=== PATIENT | male | born 1955 | race Caucasian/White ===

== ENCOUNTER 2022-06-29 10:23 | Observation (INO) | payer OTHER, SELFPAY ==
[2022-06-29 10:32] VITALS: BP 137/77; PULSE 82; TEMP 36.6; O2SAT 98; BMI 40.6
--- NOTE | 2022-06-29 10:50 | ED.ANIMALBIT ---
HPI - Animal Bite General Time Seen by Provider: 10:51 Date Seen: 06/29/22 Chief Complaint: Animal Bite Stated Complaint: Cat bite/cellulitis Time Seen by Provider: 06/29/22 10:50 Source: patient, RN notes reviewed and old records reviewed (Urgent care records sent with patient and are reviewed.) Mode of arrival: ambulatory Limitations: no limitations History of Present Illness HPI narrative: Bob is a 66-year-old diabetic male referred to us for IV antibiotics due to a cat bite. Bob went to clinic for follow-up of his cat bite that happened 2 days ago at [facility]. His cat is fully vaccinated, up-to-date on immunizations including rabies, kneels tetanus is up-to-date. Is pending his CT in the cat bit and scratched him 2 days ago. Yesterday he was having more redness and swelling of the hand could not approximate his thumb to his fingers due to pain. He was given a shot of Rocephin in the clinic and prescribed Augmentin. He states it was late enough last night that they did not have any Augmentin and did not get it until this morning. He states he has had temperatures up to 102, was 100 this morning. When he was seen in urgent care initially yesterday his temperature was 100.5. He is right-hand dominant. He has been trying to elevate the arm. He actually feels the mobility in his fingers is improved. MD complaint: animal bite Animal: cat Description of animal: household pet Mechanism: bite and scratch Related Data Patient tetanus UTD: Yes Home Medications Medication Instructions Recorded Confirmed albuterol sulfate 90 mcg/actuation 2 inh inhalation Q4H PRN 06/29/22 06/29/22 aerosol inhaler (Ventolin HFA) amlodipine 5 mg tablet 5 mg PO DAILY 06/29/22 06/29/22 amoxicillin 875 mg-potassium 1 tab PO Q12H 06/29/22 06/29/22 clavulanate 125 mg tablet aspirin 81 mg capsule 81 mg PO DAILY 06/29/22 06/29/22 atorvastatin 10 mg tablet 10 mg PO DAILY 06/29/22 06/29/22 bupropion HCl 300 mg 24 hr tablet, 300 mg PO DAILY 06/29/22 06/29/22 extended release escitalopram oxalate 10 mg tablet 10 mg PO DAILY 06/29/22 06/29/22 hydrochlorothiazide 50 mg tablet 50 mg PO DAILY 06/29/22 06/29/22 insulin glargine U-300 conc 300 160 unit subcut Q24H 06/29/22 06/29/22 unit/mL (3 mL) subcutaneous pen (Toujeo Max U-300 SoloStar) insulin lispro 100 unit/mL 20 unit subcut TIDWMEAL 06/29/22 06/29/22 subcutaneous pen liraglutide 0.6 mg/0.1 mL (18 mg/3 1.8 mg subcut DAILY 06/29/22 06/29/22 mL) subcutaneous pen injector (Victoza 3-Scotty) lisdexamfetamine 40 mg capsule 40 mg PO DAILY 06/29/22 06/29/22 (Vyvanse) losartan 100 mg tablet 100 mg PO DAILY 06/29/22 06/29/22 metformin 1,000 mg tablet 1,000 mg PO BID 06/29/22 06/29/22 methylphenidate HCl 10 mg tablet 10 mg PO DAILY PRN 06/29/22 06/29/22 methylphenidate HCl 36 mg 36 mg PO DAILY 06/29/22 06/29/22 tablet,extended release 24 hr (Concerta) pantoprazole 20 mg tablet,delayed 20 mg PO DAILY 06/29/22 06/29/22 release semaglutide 0.25 mg or 0.5 mg (2 0.5 mg subcut QWEEK 06/29/22 06/29/22 mg/1.5 mL) subcutaneous pen injector (Ozempic) Allergies Allergy/AdvReac Type Severity Reaction Status Date / Time No Known Drug Allergies Allergy Verified 06/29/22 10:43 Review of Systems Status of ROS: Reports: 10 or more systems reviewed and unremarkable except as noted in History and below PFSH PFSH Social History Smoking Status: Never smoker Do you use any of these nicotine containing products: None Second hand tobacco smoke exposure: No How often do you have a drink containing alcohol: 2-4 times a month How many standard drinks containing alcohol do you have on a typical day: 1 or 2 How often do you have six or more drinks on one occasion: Never AUDIT-C Alcohol total score: 2 Non-prescribed substance use: denies use Exam Const: Vital Signs, click to edit/add: Vital Signs - 24 hr 06/29/22 10:32 06/29/22 11:37 06/29/22 13:55 Temperature 97.8 F 97.6 F Pulse Rate [Left] 82 80 78 Respiratory Rate 22 22 Blood Pressure [Le ft Upper Arm] 137/77 130/73 128/75 Pulse Oximetry 98 95 95 Oxygen Delivery Me thod Room Air Room Air Room Air Documenting provider has reviewed patient's vital signs: yes Common normals: no apparent distress, oriented x3, no limitations, healthy appearing, alert and well nourished General appearance: cooperative, comfortable and well kempt Nutritional appearance: overweight HENMT: Common normals: normocephalic, head/scalp atraumatic, hearing grossly normal bilaterally and external ears normal Head and scalp: normocephalic and atraumatic External ear: external ears normal Eye: Common normals: PERRL, EOMs intact bilaterally, conjunctivae normal and no scleral icterus Conjunctiva: conjunctiva(e) normal Pupil: PERRL Neck & C-Spine: Common normals: full ROM, no lymphadenopathy, supple, no meningeal signs, no JVD and thyroid normal Thyroid: thyroid normal Resp: Common normals: normal respiratory effort, no retractions, no use of accessory muscles and clear to auscultation bilaterally Auscultation: clear to auscultation bilaterally Cardio: Common normals: no JVD, regular rate, regular rhythm, S1 normal heart sound, S2 normal heart sound, no gallops, no clicks and no murmurs Rate: regular rate Rhythm: regular rhythm Heart sounds: S1 normal and S2 normal Extremity: Other: Patient's right hand fingers and forearm are swelling. You can see you demarcation of erythema extending up the right medial forearm, ventral surface, small little island a little more proximally of erythema. You can see bite on the dorsum of the hand and thenar eminence area where it is oozing some serosanguineous fluid he can mobilize the wrist and does have flexion extension of the fingers. He states he was not able to approximate the thumb and the fingers at all yesterday. Clinically, on exam, I do not have concerns about septic tenosynovitis at this time. This is considerable cellulitis from a cat bite in certainly could extend to that however. Will place an IV, get appropriate labs. He has not had adequate oral antibiotics but do think that this is significant enough that I would not start with orals in this situation. I do think he needs IV. Will obtain labs, discussed with him and make a plan once I have seen the labs. One of the difficulties with the antibiotics is the dosing regimen. Has to be given frequently enough that we typically place people in the hospital as there is no way to do this reasonably outpatient. Neuro: Common normals: oriented x3 Sensorium/orientation: alert Meningeal signs: no meningeal signs Psych: Appearance: well kempt Course Course Hospital Course: See above, will be getting labs, initiate IV for starting IV antibiotics. Need to have blood cultures and labs drawn 1st however. Reevaluation(s) Reevaluation #1: Have reviewed with patient his elevated white count, elevated inflammatory markers and elevated glucose. I have ordered he Unasyn, will order maintenance IV fluids. I did speak with Dr. Macario at 1:22 p.m.. She is going to ask the hospitalist that comes on at 2:00 p.m. to see this gentleman which should be fine. I do think he will need to come into the hospital for initiation of IV antibiotics as stated before. I did do an outline of the erythema on his arm and honestly it has increased sense when I initially saw him, mildly but it has increased. Time: 13:28 Consultations Consultation #1: Spoke with the hospitalist, he will be assuming care. Time: 14:48 Vital Signs Vital signs: Initial Vital Signs Temperature 97.8 F 06/29/22 10:32 Temperature Source Temporal Artery Scan 06/29/22 10:32 Pulse Rate 82 06/29/22 10:32 Pulse Rhythm 06/29/22 10:32 Blood Pressure 137/77 06/29/22 10:32 Blood Pressure Mean 97 06/29/22 10:32 Blood Pressure Position Semi-Fowlers 06/29/22 10:32 Pulse Oximetry 98 06/29/22 10:32 Oxygen Delivery Method 06/29/22 10:32 Vital Signs Temperature 97.8 F 06/29/22 10:32 Pulse Rate 82 06/29/22 10:32 Blood Pressure 137/77 06/29/22 10:32 Pulse Oximetry 98 06/29/22 10:32 Oxygen Delivery Method 06/29/22 10:32 Temperature 97.6 F 06/29/22 13:55 Pulse Rate 78 06/29/22 13:55 Respiratory Rate 22 06/29/22 13:55 Blood Pressure 128/75 06/29/22 13:55 Pulse Oximetry 95 06/29/22 13:55 Oxygen Delivery Method 06/29/22 13:55 MDM - Animal Bite Lab Data Attestation: I reviewed the patient's lab results. Labs: Lab Results 06/29/22 06/29/22 06/29/22 Range/Units 11:18 11:18 11:18 WBC 12.76 H (4.50-11.00) K/uL RBC 4.82 (4.30-5.90) m/uL Hgb 14.7 (13.5-17.5) gm/dL Hct 42.6 (37.0-53.0) % MCV 88 (80-100) fL MCH 31 (26-34) pg MCHC 35 (32-36) gm/dL RDW Coeff of Handy 13.4 (11.5-15.5) % Plt Count 204 (140-440) K/uL Neut % (Auto) 81.1 H (42.0-72.0) % Lymph % (Auto) 10.1 L (20-44) % [place] % (Auto) 7.9 (0.0-11.0) % Eos % (Auto) 0.4 (0.0-7.0) % Baso % (Auto) 0.1 (0.0-3.0) % Neut # (Auto) 10.30 H (1.7-7.0) K/uL Lymph # (Auto) 1.30 (0.90-2.90) K/uL [place] # (Auto) 1.00 H (0.00-0.90) K/UL Eos # (Auto) 0.10 (0.00-0.50) K/uL Baso # (Auto) 0.00 (0.00-0.30) K/uL Abs Immat Gran (auto) 0.05 (0.00-0.30) K/uL ESR 34 H (2-15) mm/hr Sodium 135 (135-149) mmol/L Potassium 3.4 L (3.6-5.1) mmol/L Chloride 99 (96-114) mmol/L Carbon Dioxide 26 (20-32) mmol/L BUN 18 (7-30) mg/dL Creatinine 0.9 (0.5-1.5) mg/dL Estimated Creat Clear 72.20 Estimated GFR 95 ml/min Glucose 284 H (60-115) mg/dL Calcium 9.2 (8.4-10.6) mg/dL C-Reactive Protein 8.9 H (0.5-1.0) mg/dL SARS-CoV-2 (PCR) (Negative) 06/29/22 Range/Units 11:25 WBC (4.50-11.00) K/uL RBC (4.30-5.90) m/uL Hgb (13.5-17.5) gm/dL Hct (37.0-53.0) % MCV (80-100) fL MCH (26-34) pg MCHC (32-36) gm/dL RDW Coeff of Handy (11.5-15.5) % Plt Count (140-440) K/uL Neut % (Auto) (42.0-72.0) % Lymph % (Auto) (20-44) % [place] % (Auto) (0.0-11.0) % Eos % (Auto) (0.0-7.0) % Baso % (Auto) (0.0-3.0) % Neut # (Auto) (1.7-7.0) K/uL Lymph # (Auto) (0.90-2.90) K/uL [place] # (Auto) (0.00-0.90) K/UL Eos # (Auto) (0.00-0.50) K/uL Baso # (Auto) (0.00-0.30) K/uL Abs Immat Gran (auto) (0.00-0.30) K/uL ESR (2-15) mm/hr Sodium (135-149) mmol/L Potassium (3.6-5.1) mmol/L Chloride (96-114) mmol/L Carbon Dioxide (20-32) mmol/L BUN (7-30) mg/dL Creatinine (0.5-1.5) mg/dL Estimated Creat Clear Estimated GFR ml/min Glucose (60-115) mg/dL Calcium (8.4-10.6) mg/dL C-Reactive Protein (0.5-1.0) mg/dL SARS-CoV-2 (PCR) Negative SARS-CoV-2 (Negative) Critical Care Time Critical Care Time Critical Care Time: No Discharge Plan Discharge Clinical Impression: Diabetes, Cellulitis, Cat bite Patient Disposition: Admitted As Inpatient Condition: Stable
--- OUTSIDE RECORDS SUMMARY | 2022-06-29 11:16 | XMS_ITS | Clinical Summary ---
:1955 Author Organization [employer] [facility] [facility] [place] [address] Care Team Providers Name Role Phone Ramin Dubon MD Primary Care Provider [phone] Unavailable Allergies Active Allergy Reactions Severity Noted Date Comments Unlisted Allergen Other - Describe In 12/27/2015 Gabbi er birch tree (Include Detail In Comment Field pollen, ragweed and Comments) hayfever. Also dust mites-nasal con gestion Medications Medication Sig Dispensed Refills Start End Date Status Date CLARITIN-D 24 HOUR 10 take 1 tablet by 0 Active MG-240 MG TAB oral route once 7 daily aspirin enteric coated Take 1 tablet by 0 Active 81 mg tablet mouth once daily 4 with a meal. fluticasone (50 mcg per Inhale 2 Sprays 6 Bottle 5 Active actuation) nasal into both 7 solution nostrils once (FLONASE)Indications: daily. Allergic rhinitis due to pollen, unspecified chronicity, unspecified seasonality lancets (ACCU-CHEK Dispense item 100 Each 5 Active FASTCLIX LANCET covered by pt 8 DRUM)Indications: ins. E11.65 NIDDM Controlled type 2 type II, diabetes mellitus uncontrolled - without complication, Test 3 times/day, unspecified whether Reason: High A1C long term care administrator insulin use (HC) ACCU-CHEK FASTCLIX TEST THREE TIMES 300 Each 3 Active LANCET DRUMIndications: DAILY 9 Controlled type 2 diabetes mellitus without complication, unspecified whether long term care administrator insulin use (HC) fluticasone Inhale 1 Puff by 1 Inhaler 6 A ctive propion-salmeteroL mouth 2 times 1 (ADVAIR DISKUS) 500-50 daily. mcg/Dose diskus inhalerIndications: Asthma, unspecified asthma severity, unspecified whether complicated, unspecified whether persistent blood sugar diagnostic Dispense item 300 Strip 3 Active (Accu-Chek Guide test covered by pt 1 strips) ins. E11.9 IDDM stripIndications: type II - Test 3 Controlled type 2 times/day.TEST diabetes mellitus THREE TIMES without complication, DAILY. High A1C. unspecified whether long term care administrator insulin use (HC) Blood-Glucose Sensor As directed. Wear 3 Each 12 Active (Dexcom G6 Sensor) for 10 days 1 deviIndications: Type 2 diabetes mellitus without complication, with long-term current use of insulin (HC) Blood-Glucose As directed. For 1 Each 4 Active Transmitter (Dexcom G6 use with DexCom 1 Transmitter) sensor, replace deviIndications: Type 2 every 3 months diabetes mellitus without complication, with long-term current use of insulin (HC) Insulin [place], USE 5/day for 500 Each 3 Active Disposable, (Gloria Pen injection of 1 Needle) 32 gauge x medication-victoz Indications: Type a and insulins 2 diabetes mellitus without complication, without long-term current use of insulin (HC) losartan (COZAAR) 100 Take 1 Tablet 90 tablet. 3 Active mg tabletIndications: (100 mg) by mouth 2 Hypertension, once daily. unspecified type atorvastatin (LIPITOR) Take 1 Tablet (10 90 Tablet 3 Active 10 mg mg) by mouth once 2 tabletIndications: daily with Hyperlipidemia, evening meal. unspecified hyperlipidemia type hydroCHLOROthiazide 50 Take 1 Tablet (50 90 tablet. 3 09/28/19 2 Active mg tabletIndications: mg) by mouth once 2 Hypertension, daily. unspecified type metFORMIN (GLUCOPHAGE) 1000mg twice 180 tablet. 3 Active 1,000 mg daily 2 tabletIndications: Type 2 diabetes mellitus without complication, with long-term current use of insulin (HC) pantoprazole (PROTONIX) Take 1 Tablet (20 90 tablet. 3 02 Active 20 mg mg) by mouth once 2 tabletIndications: daily. Chronic GERD albuterol HFA (PRO-AIR; Inhale 2 Puffs by 1 Each 1 01/25/20 2 Active VENTOLIN; PROVENTIL) 90 mouth every 4 2 mcg/actuation hours if needed inhalerIndications: for Wheezing 2nd Exacerbation of asthma, choice. unspecified asthma severity, unspecified whether persistent amLODIPine (NORVASC) 5 Take 1 Tablet (5 90 Tablet 3 Active mg tabletIndications: mg) by mouth once 2 HTN (hypertension) daily. methylphenidate HCl Take one tablet 60 Tablet 0 Active (Ritalin) 10 mg in the afternoon 2 tabletIndications: as needed for Attention deficit ADHD symptoms hyperactivity disorder, combined type insulin glargine, Inject 160 units 18 mL 6 Active U-300, (Toujeo Max subcutaneous once 2 U-300 SoloStar) 300 daily in the unit/mL (3 mL) inpn evening. penIndications: Type 2 diabetes mellitus without complication, with long-term current use of insulin (HC) semaglutide (Ozempic) 2 Inject 0.5 mg 1.5 mL 6 Active mg/1.5 mL (0.25mg or subcutaneous once 2 0.5mg doses) weekly. penIndications: Type 2 diabetes mellitus without complication, with long-term current use of insulin (HC) insulin lispro, U-100, Inject 20-30 30 mL 2 Active (HUMALOG KWIKPEN; units 2 ADMELOG SOLOSTAR) 100 subcutaneous 3 unit/mL inpn times daily penIndications: Type 2 before meals. diabetes mellitus without complication, with long-term current use of insulin (HC) methylphenidate HCl Take 1 Tablet (36 30 Tablet 0 Active (Concerta) 36 mg mg) by mouth once 2 Extended-Release daily. tabletIndications: ADHD (attention deficit hyperactivity disorder), combined type methylphenidate HCl Take 1 Tablet (36 30 Tablet 0 Active (Concerta) 36 mg mg) by mouth once 2 22 Extended-Release daily. tabletIndications: Attention deficit hyperactivity disorder, combined type methylphenidate HCl Take 1 Tablet (36 30 Tablet 0 Active (Concerta) 36 mg mg) by mouth once 2 22 Extended-Release daily. tabletIndications: Attention deficit hyperactivity disorder, combined type methylphenidate HCl Take 1 Tablet (36 30 Tablet 0 Active (Concerta) 36 mg mg) by mouth once 2 Extended-Release daily. tabletIndications: Attention deficit hyperactivity disorder, combined type buPROPion (WELLBUTRIN Take 1 Tablet 90 Tablet 0 Active XL) 300 mg (300 mg) by mouth 2 Extended-Release every morning. tabletIndications: Depression, unspecified depression type escitalopram oxalate Take 1 Tablet (10 90 Tablet 0 Active (LEXAPRO) 10 mg mg) by mouth 2 tabletIndications: every morning. Anxiety, Depression, unspecified depression type medication order Dexcom 6 display 1 Device 0 Active composerIndications: device 2 Type 2 diabetes mellitus without complication, with long-term current use of insulin (HC) amoxicillin-clavulanate Take 1 Tablet by 20 Tablet 0 07/08/20 Active 875-125 mg tablet mouth two times 2 22 (AUGMENTIN)Indications: daily with meals Cat bite, initial for 10 days. encounter acetaminophen (TYLENOL Take 2 Tablets 2 Tablet 0 EXTRA STRGTH) 500 mg (1,000 mg) by 2 22 tabletIndications: Cat mouth one time bite, initial encounter for 1 dose. Max acetaminophen dose: 4000mg in 24 hrs. Hospital, Clinic, or Other Ordered Dose Route Frequency Start Date End Date Status Facility Administered Medication cefTRIAXone (ROCEPHIN) 1 g IM ONE TIME 06/28/20222021 Ended Intramuscular injection 1 gIndications: skin and skin structure infection Active Problems Problem Noted Date Controlled substance agreement signed 12/10/2021 Overview: 12/10/21 Lise Prater MD/psychiatry Type 2 diabetes mellitus without complication, with lo ng-term current use 06/21/2021 of insulin Marital conflict 10/09/2018 ADHD (attention deficit hyperactivity disorder), combi kehinde type 10/31/2017 QIAN 07/31/2012 AHI-53 08/09/2012 Adjustment disorder with mixed anxiety and depressed m ood 05/28/2012 Overview: Rule out adult ADD Benign neoplasm of colon 12/22/2009 Overview: Colonoscopy 12/2009 polyp repeat in 5 yea rs Colonoscopy 01/2015 polyp repeat in 5 yea rs Allergic rhinitis, cause unspecified 04/10/2007 Overview: Allergic rhinitis Unspecified asthma(493.90) 12/11/2006 Unspecified essential hypertension 12/11/2006 Esophageal reflux 12/11/2006 HISTOPLASMOSIS 12/11/2006 Resolved Problems Problem Noted Date Resolved Date Uncontrolled type 2 diabetes mellitus, without long-term 06/21/2021 current use of insulin Controlled substance agreement signed 11/09/2019 Overview: Signed 11/08/2019 Dr Lise Prater Psy chiatry Depression 04/17/2018 11/09/2020 Controlled substance agreement signed 01/16/2018 Overview: 01/16/18 signed .Bette Gordillo DNP, FLOTATION TENDER, PAN PULLER/psychiatry Anxiety 10/31/2017 11/09/2020 Controlled substance agreement signed 02/18/2017 Overview: Signed 12/27/15 Dr. Scottie Medel MD / p sychiatry Depressive disorder, not elsewhere classified 11/11/2014 11/09/2020 Overview: Episodic intense depression periods/ not clearly bipolar/ not clearly major depression Diabetes mellitus type II, controlled 08/17/2012 Attention deficit disorder with hyperactivity(314.01) 201110/31/2017 Allergic rhinitis, cause unspecified 12/11/2006 Encounters Date Type Specialty Care Team Description 06/29/2022 Office Visit Hannah Rabago, COST AND RISK ANALYSIS MANAGER Cat Bit e 06/28/2022 Office Visit Letitia Mirza, DO Cat Bite (Cat bite/scratch right hand yest erday afternoon) 06/28/2022 Travel 05/30/2022 Telemedicine Lise Prater, Tel eal; Medication MD Management (Per ROLLER EMBOSSER Ritalin 10mg #60 last s old on 02-06-22uses fe w times a week/Concerta 3 6 mg last sold on 04-26-20) 05/30/2022 Telephone Ramin Dubon Que stions (glucose MD monitoring) 04/16/2022 Refill Ramin Dubon, Ref ill Request (Insulin MD Lispro (U-100)) from Last 3 Months Immunizations Name Administration Dates Next Due COVID-19 vaccine (Moderna 12/07/2020, 11/08/2020 100mcg/0.5mL) PF, MDV COVID-19 vaccine (Photoblog 12/26/2021 30mcg/0.3mL) 12YO+ JOHNNIE-SUCROSE PF, MDV COVID-19 vaccine (Photoblog 08/22/2021 30mcg/0.3mL) PF, MDV Influenza A (H1N1), Inactivated 08/14/2009 Influenza A (H1N1), Inactivated (Age 1108/14/2009 >=3 Years) Influenza, IIV3 (Age 6-35 mos) 07/03/2011 Influenza, IIV3 (Age >=3 years) 06/19/2013, 08/03/2012, 06/15, 07/30/2008, 07/16/2006, 10/08/2005 Influenza, IIV4 06/21/2021, 07/22/2019, 08/21/2018, 08/15/2017, 07/25/2016, 06/17/2014, 06/21/2013 Influenza, IIV4 (=>6mos) MDV 06/05/2015 Influenza,CCIIV4 PRESERV FREE 06/21/2020 MMR 12/30/2005 Pneumococcal Poly,23-Valent 08/21/2018 (Pneumovax) Td (Age >=7 Years) 09/15/2002 Tdap 08/03/2012 Zoster (Shingrix-RZV, recombinant) 05/09/2020, 07/22/2019 Family History Medical History Relation Name Comments Cancer Father prostate Diabetes Father Other Father prostate ca Cancer Maternal Uncle prostate Diabetes Mother prediabetic Other Paternal Uncle prostate ca in 2 uncles Relation Name Status Comments Father Maternal Uncle Mother Paternal Uncle Sister Alive Social History Tobacco Use Types Packs/Day Years Used Date Never Smoker Smokeless Tobacco: Never Used Tobacco Cessation: Counseling Given: No Alcohol Use Standard Drinks/Week Comments Yes 2 (1 standard drink = 0.6 oz pure alcoho l) rare Alcohol Habits Answer Date Recorded How often do you have a drink containing alcohol? 2-3 times a week 06/01/2020 How many drinks containing alcohol do you have on a 1 or 2 07/22/2019 typical day when you are drinking? How often do you have six or more drinks on one Never 07/22/2019 occasion? 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 Obstetrics History Last Filed Vital Signs Vital Sign Reading Time Taken Comments Blood Pressure 110/78 06/29/2022 9:39 AM CDT Pulse 91 06/29/2022 9:39 AM CDT Temperature 36.7 ??C (98.1 ??F) 06/29/2022 9:39 AM CDT Respiratory Rate 16 06/29/2022 9:39 AM CDT Oxygen Saturation 97% 06/29/2022 9:39 AM CDT Inhaled Oxygen Concentration - - Weight 121 kg (266 lb 12.8 oz) 06/28/2022 12:21 PM CDT Height 172.7 cm (5' 8) 03/05/2022 10:16 AM CDT Body Mass Index 40.57 03/05/2022 10:16 AM CDT Plan of Treatment Upcoming Encounters Date Type Specialty Care Team Description 07/23/2022 Telemedicine Conor Prater MD [address] 5 [phone] (Wo rk) Health Maintenance Due Date Last Done Comments Pneumococcal series for age 19-64 08/21/2019 08/21/2018 (2 - PCV) COVID-19 vaccine series (5 - 02/20/2022 12/26/2021, 021, Booster for Moderna series) 12/07/2020, Addition al history exists Influenza for age 50-64 05/16/2022 06/21/2021, 06/21/2020, 07/22/2019, Additional history exists Tetanus booster 08/03/2022 08/03/2012, 09/15/2002 BMI (ht and wt on same day) for 01/24/2023 01/24/2022, 09/16, age 18+ 06/01/2020, Additional history exists Depression screening for age 12+ 05/30/2023 05/30/2022, , 03/26/2022, Additional history exists Colonoscopy through age 75 08/17/2025 08/17/2020, , 08/17/2020, Additional history exists Lipids for age 45-75 02/21/2027 02/21/2022, 06/14/2021, 05/10/2020, Additional history exists Tdap Completed 08/03/2012 Zoster (shingles) series for age Completed 05/09/2020, 03/2019 50+ Hepatitis C screening for age Completed 09/26/2021 18-79 Procedures Procedure Name Priority Date/Time Associated Comments Diagnosis C-REACTIVE PROTEIN STAT 06/28/2022 1:15 PM Cat bite, initia l Results for this CDT encounter procedure are i n the results section. CBC WITH AUTO STAT 06/28/2022 1:07 PM Cat bite, initial Res ults for this DIFFERENTIAL CDT encounter procedure are i n the results section. CBC WITH AUTO STAT 06/28/2022 1:07 PM Cat bite, initial Res ults for this DIFFERENTIAL CDT encounter procedure are i n the results section. from Last 3 Months Results (ABNORMAL) C-REACTIVE PROTEIN (06/28/2022 1:15 PM CDT) Analysis Performed At Patho logist Time Signature C-REACTIVE 1.56 (H) <0.50 06/28/2022 [place] PROTEIN mg/dL 1:37 PM [facility] Specimen Anatomical Collection Method / Collection Time Recei guerita Time (Source) Location / Volume Laterality Blood BLOOD SPECIMEN / Venipuncture / 06/28/2022 1:15 2021 1:17 Unknown Unknown PM CDT PM CDT Letitia Mirza CHEMISTRY Performing Organization Address City/State/ZIP Code Phon e Number [facility] [address] [place] [address] (ABNORMAL) CBC WITH AUTO DIFFERENTIAL (06/28/2022 1:07 PM CDT) [facility] Method Time Signature WHITE BLOOD 18.2 (H) 4.5 - 06/28/2022 [place] COUNT 11.0 1:21 PM T [facility] thou/cu LABORATORY mm RED BLOOD COUNT 4.76 4.30 - 06/28/2022 [place] 5.90 1:21 PM T [facility] mil/cu mm LABORATORY HEMOGLOBIN 14.8 13.5 - 06/28/2022 [place] 17.5 g/dL 1:21 PM T [facility] HEMATOCRIT 42.5 37.0 - 06/28/2022 [place] 53.0 % 1:21 PM T [facility] MCV 89 80 - 100 06/28/2022 [place] fL 1:21 PM T [facility] MCH 31.1 26.0 - 06/28/2022 [place] 34.0 pg 1:21 PM T [facility] MCHC 34.8 32.0 - 06/28/2022 [place] 36.0 g/dL 1:21 PM T [facility] RDW 14.1 11.5 - 06/28/2022 [place] 15.5 % 1:21 PM T [facility] PLATELET COUNT 243 140 - 440 06/28/2022 [place] thou/cu 1:21 PM T [facility] mm LABORATORY MPV 10.1 6.5 - 06/28/2022 [place] 11.0 fL 1:21 PM CDT [facility] % NEUT 85.8 % 06/28/2022 [place] 1:21 PM CDT [facility] % LYMPH 6.4 % 06/28/2022 [place] 1:21 PM CDT [facility] % MONO 6.8 % 06/28/2022 [place] 1:21 PM [facility]T [facility] % EOS 0.7 % 06/28/2022 [place] 1:21 PM [facility]T [facility] % BASO 0.3 % 06/28/2022 [place] 1:21 PM CDT [facility] ABSOLUTE 15.7 (H) 1.7 - 7.0 06/28/2022 [place] NEUTROPHILS thou/cu 1:21 PM CDT [facility] mm LABORATORY ABSOLUTE 1.2 0.9 - 2.9 06/28/2022 [place] LYMPHOCYTES thou/cu 1:21 PM [facility]T [facility] mm LABORATORY ABSOLUTE 1.2 (H) <0.9 06/28/2022 [place] MONOCYTES thou/cu 1:21 PM CDT [facility] mm LABORATORY ABSOLUTE 0.1 <0.5 06/28/2022 [place] EOSINOPHILS thou/cu 1:21 PM CDT [facility] mm LABORATORY ABSOLUTE 0.1 <0.3 06/28/2022 [place] BASOPHILS thou/cu 1:21 PM CDT [facility] mm LABOR[facility]ORY Specimen Anatomical Collection Method / Collection Time Recei guerita Time (Source) Location / Volume Laterality Blood BLOOD SPECIMEN / Venipuncture / 06/28/2022 1:07 2021 1:11 Unknown Unknown PM CDT PM CDT Letitia Mirza DO HEMATOLOGY Performing Organization Address City/[facility]/ZIP Code Phon e Number [facility] [address] [place], [place] [phone] from Last 3 Months Insurance Payer Benefit Plan / Subscriber ID Effective Dates Phone Addre ss Type Group [employer] [id number] 2018-Present [address] [place] [address] Care Teams Placement Coordinator Relationship Specialty Start Date End Date Ramin Dubon, PCP - General Family Practice 11/09/[address] [place] [address] Laboratory Mechanical Technician Procurement Agent 07/04/21 [address] [place] [address]
[2022-06-29 11:37] VITALS: BP 130/73; PULSE 80; RESP 22; O2SAT 95
[2022-06-29 11:42] LABS: Basophils Percent Auto 0.1 % (0.0-3.0); Eosinophils Percent Auto 0.4 % (0.0-7.0); Hematocrit 42.6 % (37.0-53.0); Hemoglobin* 14.7 gm/dL (13.5-17.5); Immature Granulocytes Abs Auto 0.05 K/uL (0.00-0.30); Lymphocytes Percent Auto 10.1 % (20-44); Mean Corpuscular HGB Conc 35 gm/dL (32-36); Mean Corpuscular Hemoglobin 31 pg (26-34); Mean Corpuscular Volume 88 fL (80-100); Monocytes Percent Auto 7.9 % (0.0-11.0); Neutrophils Percent Auto 81.1 % (42.0-72.0); Platelet Count* 204 K/uL (140-440); RDW Coefficient of Variation % 13.4 % (11.5-15.5); Red Blood Count 4.82 m/uL (4.30-5.90); White Blood Count* 12.76 K/uL (4.50-11.00)
[2022-06-29 11:45] LABS: Slide Review Reflex No
[2022-06-29 11:55] LABS: Chloride* 99 mmol/L (96-114); Potassium* 3.4 mmol/L (3.6-5.1); Sodium* 135 mmol/L (135-149)
[2022-06-29 11:58] LABS: Blood Urea Nitrogen* 18 mg/dL (7-30); Carbon Dioxide* 26 mmol/L (20-32); Creatinine* 0.9 mg/dL (0.5-1.5); Estimated Glomerular Filt Rate 95 ml/min; Glucose* 284 mg/dL (60-115)
[2022-06-29 11:59] LABS: Calcium* 9.2 mg/dL (8.4-10.6)
[2022-06-29 12:01] LABS: C Reactive Protein* 8.9 mg/dL (0.5-1.0)
[2022-06-29 12:10] LABS: SARS PCR* Negative SARS-CoV-2 (Negative)
[2022-06-29 12:27] LABS: Erythrocyte SedimentationRate* 34 mm/hr (2-15)
[2022-06-29] MEDS: AMPICILLIN/SULBACTAM 3 GM in 0.9 % SODIUM CHLORIDE Mini-bag 100 ML IVPB ×2 (13:54→19:47)
[2022-06-29 13:55] VITALS: BP 128/75; PULSE 78; RESP 22; TEMP 36.4; O2SAT 95
[2022-06-29] MEDS: IBUPROFEN 200 MG TABLET 600 MG PO (14:38)
--- NOTE | 2022-06-29 15:14 | W.PC.EDHO ---
Primary Language: Preferred Language: Orientation Status: [] Alert & Oriented [] Slight Confusion [] Known Dx Dementia Transfers By: [] Assist of 1 [] Assist of 2 [] Lift Active Medications Discontinued Medications Generic Name Dose Route Start Last Admin Trade Name Mary PRN Reason Stop Dose Admin Ampicillin Sodium/Sulbactam 100 mls @ 200 mls/hr 06/29/22 13:04 06/29/22 14:42 Sodium 3 gm/ Sodium Chloride IVPB 06/29/22 13:05 Infused ONCE ONE Infusion Ibuprofen 600 mg 06/29/22 14:02 06/29/22 14:38 Ibuprofen 200 Mg Tablet PO 06/29/22 14:03 600 mg ONCE ONE Administration Description of Symptoms ED Triage Present Problem Bit by cat on . Seen in [facility] twice, was Description given IM rocephin and sent home with augmentin. Took first dose of augmentin in ocrrectly, took one instead of two. UC thinks bit is worse and sent to ER for IV antibiotics. UC stated area was streaking and weeping. ED Triage Date of Onset of 06/27/22 Symptoms Pain Pain Description [Right Hand] Dull, Achy,Tender Pain Description [Right Hand] Throbbing Pain Intensity [Right Hand] 2 Pain Intensity [Right Hand] 4 Pain Intensity 2 Pain Scale Used [Right Hand] Numeric (1 - 10) Pain Scale Used [Right Hand] Numeric (1 - 10) Pain Scale Used Numeric (1 - 10) IV Insertion/Site Date of IV Line Insertion [ 06/29/22 Left Hand] Oxygen Administration Pulse Oximetry 95 Pulse Oximetry 95 Pulse Oximetry 98 Oxygen Delivery Method Room Air Oxygen Delivery Method Room Air Oxygen Delivery Method Room Air
[2022-06-29 16:04] VITALS: BP 148/92; PULSE 83; RESP 18; TEMP 36.9; O2SAT 97; BMI 40.0
[2022-06-29] MEDS: POTASSIUM BICARB 25 MEQ EFFERVESCENT TAB PO ×2 (17:48→19:47)
--- NOTE | 2022-06-29 18:39 | PM.IMHP1 ---
Hospitalist- H&P: HPI History of Present Illness Time Seen by Provider: 15:00 Date Seen: 06/29/22 Chief complaint: Cat bite/cellulitis of right hand Narrative: Bob Reed is a 66 year old man was in his usual state of health until the afternoon of 06/27/2022. The patient touched his cat who was laying on it is back on the afternoon of 06/27/[address] instinctively bit his hand. His cat is up-to-date on its tetanus immunization. He washed off the bite. He did not think much of it until the following day, when his hand was red and swollen with some drainage at the bite site thus he presented to an urgent care center for further assessment. At home he had tried antibiotic ointment without improvement. Already had a fever with a temperature of 100.5? F, R 38.1? C. In the urgent care setting they administered 1 g of IV ceftriaxone and given a prescription for Augmentin. He did not start the Augmentin until yesterday evening. This morning he noticed the swelling was much more intense than previously, the redness had spread up his forearm, and he developed a fever as high as 105? F at home. Thus he presented to the emergency department for further assessment. Within a short period of time emergency department the redness spread up to his axilla on the right. Notes that there is some discomfort but he is able to tolerate for the most part. Review of Systems Status of ROS: Reports: 10 or more systems reviewed and unremarkable except as noted in History and below Narrative: I looked up his tetanus status. The last TD/Tdap he received was on 08/03/2012. He tells me he has attention deficit disorder for which he takes medications that are for the most part very helpful. He acknowledges being somewhat scattered brain in terms of being able to focus if he does not take his medicines. He has been very busy at work. He acknowledges he has not been taking care of himself consequently. As such is blood sugars have not been well controlled. His blood sugars are in the 200-300 range recently. He prefers that they be much lower but he has not taken the time to address this recently. Acknowledges polydipsia and polyuria. Denies dysuria, urgency, frequency, hematuria. Does have nocturia. His blood sugar monitoring device has been down for a few weeks. Has not had hypoglycemic episodes. Denies chest heaviness, pressure, tightness, or pain. Denies syncope or near-syncope. Denies nausea or vomiting. Denies palpitations or fluttering. Denies cough, dyspnea at rest, paroxysmal nocturnal dyspnea, or orthopnea. Does have bilateral lower extremity edema at times particularly towards the end of the day. Denies dyspepsia, dysphagia, odynophagia. For few weeks he has had loose stools without any blood loss. Aside from the fever that he has had recently in association with a cat bite he has had no other fevers, rigors, diaphoresis. Denies heat or cold intolerance. Denies weight gain or weight loss. Denies blood loss of any sort. No focal motor neurologic deficits. Designates his , Melody, as his power of personal injury attorney for health should that be required. Requests full resuscitation in the event of cardiopulmonary demise. Notes that he does not want to be kept alive in a persistent vegetative state. Primary care physician is in the [facility]. [facility] Medical History Ascending aorta enlargement Asthma Diabetes mellitus type 2 in obese Essential hypertension Gastroesophageal reflux disease Hearing loss History of histoplasmosis Severe obesity (BMI >= 40) Surgical History Status post cholecystectomy Status post colonoscopy Status post hernia repair Status post vasectomy Social History Smoking Status: Never smoker Do you use any of these nicotine containing products: None Second hand tobacco smoke exposure: No How often do you have a drink containing alcohol: 2-4 times a month How many standard drinks containing alcohol do you have on a typical day: 1 or 2 How often do you have six or more drinks on one occasion: Never AUDIT-C Alcohol total score: 2 Non-prescribed substance use: denies use Caffeine: Yes (1 Monster Drink/day) Meds Home Medications and Allergies Home Medications Medication Instructions Recorded Confirmed Type albuterol sulfate 90 mcg/actuation 2 inh inhalation Q4H PRN 06/29/22 06/29/22 History aerosol inhaler (Ventolin HFA) amlodipine 5 mg tablet 5 mg PO DAILY 06/29/22 06/29/22 History amoxicillin 875 mg-potassium 1 tab PO Q12H 06/29/22 06/29/22 History clavulanate 125 mg tablet aspirin 81 mg capsule 81 mg PO HS 06/29/22 06/29/22 History atorvastatin 10 mg tablet 10 mg PO HS 06/29/22 06/29/22 History bupropion HCl 300 mg 24 hr tablet, 300 mg PO DAILY 06/29/22 06/29/22 History extended release escitalopram oxalate 10 mg tablet 10 mg PO DAILY 06/29/22 06/29/22 History fluticasone propionate 50 2 spray intranasal DAILY PRN 06/29/22 06/29/22 History mcg/actuation nasal spray,suspension (24 Hour Allergy Relief) hydrochlorothiazide 50 mg tablet 50 mg PO DAILY 06/29/22 06/29/22 History insulin glargine U-300 conc 300 160 unit subcut DAILY 06/29/22 06/29/22 History unit/mL (3 mL) subcutaneous pen (Toujeo Max U-300 SoloStar) insulin lispro 100 unit/mL 20 - 30 unit subcut TIDWMEAL 06/29/22 06/29/22 History subcutaneous pen loratadine-pseudoephedrine ER 10 1 tab PO HS 06/29/22 06/29/22 History mg-240 mg tablet,extended [id number] (Allergy Relief D-24hr) losartan 100 mg tablet 100 mg PO DAILY 06/29/22 06/29/22 History metformin 1,000 mg tablet 1,000 mg PO BID 06/29/22 06/29/22 History methylphenidate HCl 10 mg tablet 10 mg PO DAILY PRN 06/29/22 06/29/22 History methylphenidate HCl 36 mg 36 mg PO DAILY 06/29/22 06/29/22 History tablet,extended release 24 hr (Concerta) pantoprazole 20 mg tablet,delayed 20 mg PO DAILY 06/29/22 06/29/22 History release semaglutide 0.25 mg or 0.5 mg (2 0.5 mg subcut MO@09 06/29/22 06/29/22 History mg/1.5 mL) subcutaneous pen injector (Ozempic) Allergies Allergy/AdvReac Type Severity Reaction Status Date / Time No Known Drug Allergies Allergy Verified 06/29/22 10:43 Exam Narrative: Exam Narrative: Alert, articulate, cooperative. Friendly. Mood and affect are congruent. Oriented to self, place, time, situation. No acute distress, appears comfortable. Right hand is swollen including the fingers, swelling extends up the forearm to the distal part of arm. Redness more so distally than proximally although erythema extends all the way to the axilla. Does have puncture wounds on the thenar eminence with clear discharge. No purulence. Entire right upper extremity is warm to touch. Able to move fingers and thumb. Maximum circumference of right forearm is 35 cm. Maximum circumference of right hand is 25 cm. Vision and hearing are grossly normal. Midline nasal septum. Dentition in fair repair. Oropharynx is moist. Lungs are clear to auscultation without wheezing, rhonchi, or rales. Chest wall excursions are full. No CVA tenderness. Heart tones with regular rhythm, normal S1-S2, without murmur, gallop, or rub. PMI is not laterally displaced. Abdomen is obese with active bowel sounds, soft, nontender. No rebound or guarding. No organomegaly or masses. Palpable pulses upper and lower extremities. Capillary refill less than 3 seconds. Independent transfer, station, and gait. No tremor, asterixis, or ataxia. Cranial nerves 3-12 are grossly normal. Aside from the abnormality of the right upper extremity as described above, skin otherwise dry and intact. Const: Vital Signs, click to edit/add: Vital Signs - 24 hr 06/29/22 10:32 06/29/22 11:37 06/29/22 13:55 Temperature 97.8 F 97.6 F Pulse Rate [Left] 82 80 78 Respiratory Rate 22 Blood Pressure [Le ft Arm] Blood Pressure [Le ft Upper Arm] 137/77 130/73 128/75 Pulse Oximetry 98 95 95 Oxygen Delivery Me thod Room Air Room Air Room Air 06/29/22 16:04 Temperature 98.4 F Pulse Rate [Left] 83 Respiratory Rate 18 Blood Pressure [Le ft Arm] 148/92 H Blood Pressure [Le ft Upper Arm] Pulse Oximetry 97 Oxygen Delivery Me thod Room Air Hospitalist - H&P: Result Labs Labs: Short CBC 06/29/22 Range/Units 11:18 WBC 12.76 H (4.50-11.00) K/uL Hgb 14.7 (13.5-17.5) gm/dL Hct 42.6 (37.0-53.0) % Plt Count 204 (140-440) K/uL [facility] 06/29/22 11:18 Sodium 135 Potassium 3.4 L Chloride 99 Carbon Dioxide 26 BUN 18 Creatinine 0.9 Glucose 284 H Calcium 9.2 Assessment and Plan Assessment and plan (1) Tenosynovitis of right hand: Problem comment: Status post cat bite 06/27/2022 Status: Acute (2) Cellulitis of right upper extremity: Problem comment: Status post cat bite 06/27/2022 Status: Acute (3) Sepsis: Status: Acute (4) Diabetes mellitus type 2 in obese: Problem comment: Insulin requiring Status: Acute (5) Need for tetanus booster: Status: Acute Plan 1. Discussed with the physician in our emergency department. 2. Discussed with patient and his . 3. Recommend admission to the hospital and initiation of Unasyn IV, properly sized Tubigrip compression of right hand and forearm, scheduled acetaminophen, as needed ibuprofen. 4. Continue with insulin administration, monitoring, and sliding scale. Goal is to achieve blood sugars between 110 and 180 while here in the hospital if at all possible. 5. I have asked our on-call orthopedic surgery staff to assess and assist with their recommendations. 6. Administer tetanus booster. 7. IV fluids, monitor lactate, monitor other labs. 8. Continue with other supportive medications. 9. Answered patient's and 's questions to their satisfaction. 10. Patient and were agreeable to above stated plans and recommendations.
[2022-06-29 19:15] VITALS: BP 128/78; PULSE 83; RESP 16; TEMP 36.8; O2SAT 94
--- NOTE | 2022-06-29 19:35 | P.ORCN_ITS ---
History of Present Illness HPI Time Seen by Provider: 19:00 Date Seen: 06/29/22 Consult date: 06/29/22 Requesting physician: Stanton Silva Chief complaint: Cat bite/cellulitis of right hand Narrative: Bob is a very pleasant 66-year-old young man, he was bit by his cat Pratibha 2 days ago on the right hand. He states his Cat has long teeth. He is [id number]. He was seen at [facility] initially and placed on Augmentin and had an injection of Rocephin. He was seen at urgent care again today as planned for a recheck, they told him to be seen in the emergency room for it is felt he needed IV antibiotics and further evaluation. He chose [facility]. His Cat has had all of its vaccinations including rabies. He has had temperatures 100.2-102. He is [id number]. He has been elevating, using Tylenol and ibuprofen as well. He feels his pain level has decreased, bruising has decreased, however the swelling in his arm has increased over time. Redness about the arm has been outlined with a marker and tracks up his upper arm along the radial border of the arm and over the biceps area. The puncture area proximal to the base of his thumb dorsal/radial has been draining yellow drainage. He has had blood cultures drawn. He denies having fatigue. He has elevated white blood cell count, ESR, CRP, glucose. He is type 2 diabetic. He is obese. He was bit by a cat approximately 25 years ago with infection and therefore knows how significant a cat bite can be. He will be getting a tetanus shot. Uses a CPAP at night and has it with him. Review of Systems Status of ROS: Reports: 6 or more systems reviewed and unremarkable except as noted in History and below Const: Reports: fever (100-102) Musculo: Reports: extremity pain, extremity swelling and limited range of motion Integ/Breast: Reports: redness, skin tenderness and skin swelling PFSH PFS Medical History Ascending aorta enlargement Asthma Diabetes mellitus type 2 in obese Essential hypertension Gastroesophageal reflux disease Hearing loss History of histoplasmosis Severe obesity (BMI >= 40) Surgical History Status post cholecystectomy Status post colonoscopy Status post hernia repair Status post vasectomy Social History Smoking Status: Never smoker Do you use any of these nicotine containing products: None Second hand tobacco smoke exposure: No How often do you have a drink containing alcohol: 2-4 times a month How many standard drinks containing alcohol do you have on a typical day: 1 or 2 How often do you have six or more drinks on one occasion: Never AUDIT-C Alcohol total score: 2 Non-prescribed substance use: denies use Caffeine: Yes (1 Monster Drink/day) Meds Home Medications and Allergies Home Medications Medication Instructions Recorded Confirmed Type albuterol sulfate 90 mcg/actuation 2 inh inhalation Q4H PRN 06/29/22 06/29/22 History aerosol inhaler (Ventolin HFA) amlodipine 5 mg tablet 5 mg PO DAILY 06/29/22 06/29/22 History amoxicillin 875 mg-potassium 1 tab PO Q12H 06/29/22 06/29/22 History clavulanate 125 mg tablet aspirin 81 mg capsule 81 mg PO HS 06/29/22 06/29/22 History atorvastatin 10 mg tablet 10 mg PO HS 06/29/22 06/29/22 History bupropion HCl 300 mg 24 hr tablet, 300 mg PO DAILY 06/29/22 06/29/22 History extended release escitalopram oxalate 10 mg tablet 10 mg PO DAILY 06/29/22 06/29/22 History fluticasone propionate 50 2 spray intranasal DAILY PRN 06/29/22 06/29/22 History mcg/actuation nasal spray,suspension (24 Hour Allergy Relief) hydrochlorothiazide 50 mg tablet 50 mg PO DAILY 06/29/22 06/29/22 History insulin glargine U-300 conc 300 160 unit subcut DAILY 06/29/22 06/29/22 History unit/mL (3 mL) subcutaneous pen (Toujeo Max U-300 SoloStar) insulin lispro 100 unit/mL 20 - 30 unit subcut TIDWMEAL 06/29/22 06/29/22 History subcutaneous pen loratadine-pseudoephedrine ER 10 1 tab PO HS 06/29/22 06/29/22 History mg-240 mg tablet,extended [id number] (Allergy Relief D-24hr) losartan 100 mg tablet 100 mg PO DAILY 06/29/22 06/29/22 History metformin 1,000 mg tablet 1,000 mg PO BID 06/29/22 06/29/22 History methylphenidate HCl 10 mg tablet 10 mg PO DAILY PRN 06/29/22 06/29/22 History methylphenidate HCl 36 mg 36 mg PO DAILY 06/29/22 06/29/22 History tablet,extended release 24 hr (Concerta) pantoprazole 20 mg tablet,delayed 20 mg PO DAILY 06/29/22 06/29/22 History release semaglutide 0.25 mg or 0.5 mg (2 0.5 mg subcut MO@09 06/29/22 06/29/22 History mg/1.5 mL) subcutaneous pen injector (Ozempic) Allergies Allergy/AdvReac Type Severity Reaction Status Date / Time No Known Drug Allergies Allergy Verified 06/29/22 10:43 Ortho Exam Narrative Exam Narrative: Alert and oriented x3. Patient is in no acute distress. Converses without labored breathing. Hearing is grossly intact. Ambulates with a normal gait. No palpable cervical, axillary, elbow area lymph nodes are palpable. Nontender palpation about the upper arm. Erythema is present and outlined in this area. Erythema over the radial side and dorsum of the forearm and radial side of the thumb and over the thenar eminence. Swelling about the thumb, hand, forearm. One, small Cat bite puncture area is radial/dorsal side of the thumb over the thumb metacarpal area. This is draining serous drainage. No purulence is seen. No odor. It appears in this area there is also the start of fine very superficial blistering. There is ecchymosis over the thenar eminence and over the dorsal surface of the distal phalanx proximal to the nail. No other wounds are noted. The thumb is not resting in a flexed position. Able to passively fully extend and flex the thumb without significant pain. He does have a sense of tightness and mild discomfort with this but certainly not severe. I can passively extend and flex his wrist. He can actively flex and extend his wrist and thumb. Tender mildly at the MP joint medial and laterally and the IP joint medial and laterally. No tenderness over the volar or dorsal surfaces of those joints. Mild to moderate tenderness to palpation over the base of the thumb in the area of erythema and swelling and drainage. Tenderness about the forearm in the area of swelling and erythema. Nontender in the upper arm. Nontender over flexor tendon of the thumb. Capillary refill is less than 2 seconds. He states his sensation is velvety with palpation of his skin of the hand and forearm. No significant swelling of the remaining 4 fingers. No erythema in those fingers either. No abscess is palpable. Const Vital Signs, click to edit/add: Vital Signs - 24 hr 06/29/22 10:32 06/29/22 11:37 06/29/22 13:55 Temperature 97.8 F 97.6 F Pulse Rate [Left] 82 80 78 Respiratory Rate 22 22 Blood Pressure [Left Arm] Blood Pressure [Left Upper Arm] 137/77 130/73 128/75 Pulse Oximetry 98 95 95 Oxygen Delivery Method Room Air Room Air Room Air 06/29/22 16:04 Temperature 98.4 F Pulse Rate [Left] 83 Respiratory Rate 18 Blood Pressure [Left Arm] 148/92 H Blood Pressure [Left Upper Arm] Pulse Oximetry 97 Oxygen Delivery Method Room Air Results Labs Labs: Laboratory Results - last 48 hr 06/29/22 06/29/22 06/29/22 11:18 11:18 11:18 WBC 12.76 H RBC 4.82 Hgb 14.7 Hct 42.6 MCV 88 MCH 31 MCHC 35 RDW Coeff of Handy 13.4 Plt Count 204 Neut % (Auto) 81.1 H Lymph % (Auto) 10.1 L [place] % (Auto) 7.9 Eos % (Auto) 0.4 Baso % (Auto) 0.1 Neut # (Auto) 10.30 H Lymph # (Auto) 1.30 [place] # (Auto) 1.00 H Eos # (Auto) 0.10 Baso # (Auto) 0.00 Abs Immat Gran (auto) 0.05 ESR 34 H Sodium 135 Potassium 3.4 L Chloride 99 Carbon Dioxide 26 BUN 18 Creatinine 0.9 Estimated Creat Clear 72.20 Estimated GFR 95 Glucose 284 H Calcium 9.2 C-Reactive Protein 8.9 H SARS-CoV-2 (PCR) 06/29/22 11:25 WBC RBC Hgb Hct MCV MCH MCHC RDW Coeff of Handy Plt Count Neut % (Auto) Lymph % (Auto) [place] % (Auto) Eos % (Auto) Baso % (Auto) Neut # (Auto) Lymph # (Auto) [place] # (Auto) Eos # (Auto) Baso # (Auto) Abs Immat Gran (auto) ESR Sodium Potassium Chloride Carbon Dioxide BUN Creatinine Estimated Creat Clear Estimated GFR Glucose Calcium C-Reactive Protein SARS-CoV-2 (PCR) Negative SARS-CoV-2 Assessment and Plan Assessment and plan (1) Tenosynovitis of right hand: Problem comment: Status post cat bite 06/27/2022 Status: Acute Total time spent: Total time spent is greater than 50% in coordination of care (as documented) at patient's floor/unit and/or counseling patient: (2) Cellulitis of right upper extremity: Problem comment: Status post cat bite 06/27/2022 Status: Acute Assessment and Plan: Cellulitis right upper extremity from cat bite. I discussed Bob's history and physical exam extensively with Dr. Whalen. We feel there is no need to go to surgery today. He will continue with IV Unasyn. There is mild discomfort with passive or active range of motion of thumb or wrist, but certainly not significant pain. He is easily able to flex and extend it. He will continue with IV Unasyn, active ice, ibuprofen, Tylenol, elevation. The hand is washed with soap and water and dried. A 4 x 4 gauze and 3 inch S[place] bandage is applied to the hand, thumb and forearm. He tolerated this very well. Either Dr. Whalen or myself will see him again tomorrow. I have spoke with Dr. Silva as well and he is aware of our plan. Patient is in agreement the plan. All questions were answered. Note, dictation performed with voice recognition, and as a result, wrong word or sound like substitutions may have occurred. There may be areas in the script that have gone on detected. Please consider this when interpreting information found in the chart. Total time spent: Total time spent is greater than 50% in coordination of care (as documented) at patient's floor/unit and/or counseling patient: (3) Sepsis: Status: Acute Total time spent: Total time spent is greater than 50% in coordination of care (as documented) at patient's floor/unit and/or counseling patient: (4) Diabetes mellitus type 2 in obese: Problem comment: Insulin requiring Status: Acute Total time spent: Total time spent is greater than 50% in coordination of care (as documented) at patient's floor/unit and/or counseling patient: (5) Need for tetanus booster: Status: Acute Total time spent: Total time spent is greater than 50% in coordination of care (as documented) at patient's floor/unit and/or counseling patient:
[2022-06-29] MEDS: ASPIRIN 81 MG TABLET EC PO (20:34)
[2022-06-29] MEDS: METFORMIN 1,000 MG TABLET 1000 MG PO (20:34)
[2022-06-29] MEDS: ATORVASTATIN 10 MG TABLET PO (20:34)
[2022-06-29] MEDS: ACETAMINOPHEN 325 MG TABLET 650 MG PO (20:34)
[2022-06-29] MEDS: TETANUS/DIPHTH/PERTUSSIS 0.5 ML SYRINGE IM (21:13)
--- NOTE | 2022-06-29 22:41 | PC.NURSE ---
Shift [id number]- Patient arrives to floor at approximately 1545. He is alert and oriented and steady on his feet, up ad leah. Right hand is swollen, reddened and warm. Hand/ lower arm is wrapped and active ice applied by PA. Appetite is intact.
[2022-06-29 23:00] VITALS: BP 136/69; PULSE 78; RESP 16; TEMP 36.6; O2SAT 98
[2022-06-30] MEDS: AMPICILLIN/SULBACTAM 3 GM in 0.9 % SODIUM CHLORIDE Mini-bag 100 ML IVPB ×4 (02:32→19:59)
[2022-06-30 03:00] VITALS: BP 124/75; PULSE 68; RESP 18; TEMP 36.6; O2SAT 97
--- NOTE | 2022-06-30 05:50 | PC.NURSE ---
SHIFT NOTE -: Pt A&O. Afebrile, oxygen saturations >90% on RA/CPAP. Pt denied need for pain medication overnight, right hand loraine wrapped and cellulitis within margins, active ice applied. Pt up independent.
[2022-06-30 07:43] LABS: Lactate* 1.1 mmol/L (0.5-1.9)
[2022-06-30 07:53] LABS: Mean Corpuscular HGB Conc 34 gm/dL (32-36); Mean Corpuscular Hemoglobin 30 pg (26-34); Mean Corpuscular Volume 89 fL (80-100); Platelet Count* 205 K/uL (140-440); Red Blood Count 4.27 m/uL (4.30-5.90); White Blood Count* 9.51 K/uL (4.50-11.00)
[2022-06-30 08:05] LABS: Chloride* 102 mmol/L (96-114); Potassium* 3.2 mmol/L (3.6-5.1); Sodium* 138 mmol/L (135-149)
[2022-06-30 08:08] LABS: Creatinine* 0.7 mg/dL (0.5-1.5); Estimated Glomerular Filt Rate 103 ml/min
[2022-06-30 08:09] LABS: Blood Urea Nitrogen* 17 mg/dL (7-30); Calcium* 8.7 mg/dL (8.4-10.6); Carbon Dioxide* 27 mmol/L (20-32); Glucose* 95 mg/dL (60-115); Magnesium* 1.7 mg/dL (1.5-2.6); Phosphorus* 3.2 mg/dL (2.5-4.5)
[2022-06-30 08:10] VITALS: BP 143/82; PULSE 74; RESP 18; TEMP 36.5; O2SAT 98
[2022-06-30 08:21] LABS: Slide Review Reflex No
[2022-06-30 08:25] LABS: C Reactive Protein* 15.6 mg/dL (0.5-1.0)
[2022-06-30 08:56] LABS: Thyroid Stimulating Hormone* 0.986 uIU/mL (0.270-4.20)
[2022-06-30] MEDS: buPROPion XL 150 MG TABLET 300 MG PO (08:58)
[2022-06-30] MEDS: OMEPRAZOLE 20 MG CAPSULE DR PO (08:58)
[2022-06-30] MEDS: AMLODIPINE 5 MG TABLET PO (08:58)
[2022-06-30] MEDS: LOSARTAN POTASSIUM 50 MG TABLET 100 MG PO (08:58)
[2022-06-30] MEDS: hydroCHLOROthiazide 25 MG TABLET PO (08:58)
[2022-06-30] MEDS: ESCITALOPRAM 10 MG TABLET PO (08:59)
[2022-06-30] MEDS: ACETAMINOPHEN 325 MG TABLET 650 MG PO ×4 (08:59→20:48)
[2022-06-30] MEDS: METFORMIN 1,000 MG TABLET 1000 MG PO ×2 (08:59→20:49)
[2022-06-30 11:06] LABS: Hemoglobin A1C* 8.83 % (0-5.6)
--- NOTE | 2022-06-30 11:46 | PM.IMPN1 ---
Progress Note: A&P Assessment and plan (1) Cellulitis of right upper extremity: Problem details: Status post cat bite 06/27/2022 Status: Acute Assessment and Plan: continue unasyn; improving; edema decreasing; range of motion improving, wbc trending down; blood cx ngtd (2) Tenosynovitis of right hand: Problem details: Status post cat bite 06/27/2022 Status: Acute (3) Diabetes mellitus type 2 in obese: Problem details: Insulin requiring Status: Acute Assessment and Plan: A1c 8 (4) Hypokalemia: Status: Acute Assessment and Plan: scheduled potassium replacement; check magnesium (5) Cat bite: Problem details: 06/27/2022 Status: Acute Subjective Date Seen: 06/30/22 Interval history: Patient states edema in hand is improving range of motion improving no acute events overnight Exam Narrative: Exam Narrative: Gen: No acute distress HEENT: NCAT EOMI MMM CV: RRR s1s2 L:CTAB Abd: Soft; nt, nt MSK: right hand 2+ edema; full ROM of fingers, minimal erythema, FROM wrist Const: Vital Signs, click to edit/add: Vital Signs - 24 hr 06/29/22 13:55 06/29/22 16:04 06/29/22 19:15 Temperature 97.6 F 98.4 F 98.3 F Pulse Rate [Left] 78 83 83 Pulse Rate [Right Radial] Respiratory Rate 22 18 16 Blood Pressure [Le ft Arm] 148/92 H 128/78 Blood Pressure [Le ft Upper Arm] 128/75 Pulse Oximetry 95 97 94 Oxygen Delivery Me thod Room Air Room Air Room Air 06/29/22 23:00 06/29/22 23:00 06/30/22 03:00 Temperature 98 F 97.8 F Pulse Rate [Left] 78 68 Pulse Rate [Right Radial] Respiratory Rate 16 16 18 Blood Pressure [Le ft Arm] 136/69 124/75 Blood Pressure [Le ft Upper Arm] Pulse Oximetry 98 97 Oxygen Delivery Me thod Room Air CPAP 06/30/22 08:10 Temperature 97.7 F Pulse Rate [Left] Pulse Rate [Right Radial] 74 Respiratory Rate 18 Blood Pressure [Le ft Arm] 143/82 H Blood Pressure [Le ft Upper Arm] Pulse Oximetry 98 Oxygen Delivery Me thod Room Air Labs Labs: Laboratory Results - last 24 hr 06/29/22 06/29/22 06/29/22 11:18 11:18 11:25 WBC RBC Hgb Hct MCV MCH MCHC Plt Count ESR 34 H Sodium 135 Potassium 3.4 L Chloride 99 Carbon Dioxide 26 BUN 18 Creatinine 0.9 Estimated Creat Clear 72.20 Estimated GFR 95 Glucose 284 H Hemoglobin A1c Lactate Calcium 9.2 Phosphorus Magnesium C-Reactive Protein 8.9 H TSH SARS-CoV-2 (PCR) Negative SARS-CoV-2 06/30/22 06/30/22 06/30/22 07:24 07:24 07:24 WBC 9.51 RBC 4.27 L Hgb 13.0 L Hct 38.0 MCV 89 MCH 30 MCHC 34 Plt Count 205 ESR Sodium 138 Potassium 3.2 L Chloride 102 Carbon Dioxide 27 BUN 17 Creatinine 0.7 Estimated Creat Clear 72.20 Estimated GFR 103 Glucose 95 Hemoglobin A1c Lactate 1.1 Calcium 8.7 Phosphorus 3.2 Magnesium 1.7 C-Reactive Protein 15.6 H TSH SARS-CoV-2 (PCR) 06/30/22 06/30/22 07:24 07:24 WBC RBC Hgb Hct MCV MCH MCHC Plt Count ESR Sodium Potassium Chloride Carbon Dioxide BUN Creatinine Estimated Creat Clear Estimated GFR Glucose Hemoglobin A1c 8.83 H Lactate Calcium Phosphorus Magnesium C-Reactive Protein TSH 0.986 SARS-CoV-2 (PCR)
[2022-06-30 12:48] VITALS: BP 128/74; PULSE 16; PULSE 78; RESP 97; TEMP 36.5
[2022-06-30] MEDS: POTASSIUM CHLORIDE 10 MEQ CAPSULE ER 40 MEQ PO (13:25)
--- NOTE | 2022-06-30 13:26 | PM.ORPN ---
Subjective Subjective Time Seen by Provider: 13:27 Date Seen: 06/30/22 Principal diagnosis: rt hand cat bite Interval history: Patient states edema in hand is improving, redness is improving. range of motion improving. Today he is able to touch all finger tips to the thumb Hand throbs if he puts it down. Discomfort with touch. Also cat bite puncture is not draining currently. Ortho Exam Narrative Exam Narrative: Pt is alert and oriented. The dressing is off. Swelling is improving for there are slight wrinkles about the cat bite area which were not observed yesterday. Bruising thenar emminence and proximal to the thumb nail. No current drainage from cat bite site. Erythema has improved greatly and is retracting. no erythema currently in upper arm, mild in forearm, mild to moderate about the hand. Edema in hand and forearm improved. Able to passively and actively range the thumb and wrist without significant pain. Palpation of the IP and MP joint, much less tender than last night. non tender along flexor tendon of thumb. slight tenderness palpation of the extensor tendon of the thumb. No numbness however the hand feels velvety still with palpation. Cap refill less than 2 sec rt hand. Elbow range of motion normal. No pain at elbow or upper arm. Const Vital Signs, click to edit/add: Vital Signs - 24 hr 06/29/22 13:55 06/29/22 16:04 06/29/22 19:15 Temperature 97.6 F 98.4 F 98.3 F Pulse Rate [Left] 78 83 83 Pulse Rate [Right Radial] Respiratory Rate 22 18 16 Blood Pressure [Left Arm] 148/92 H 128/78 Blood Pressure [Left Upper Arm] 128/75 Pulse Oximetry 95 97 94 Oxygen Delivery Method Room Air Room Air Room Air 06/29/22 23:00 06/29/22 23:00 06/30/22 03:00 Temperature 98 F 97.8 F Pulse Rate [Left] 78 68 Pulse Rate [Right Radial] Respiratory Rate 16 16 18 Blood Pressure [Left Arm] 136/69 124/75 Blood Pressure [Left Upper Arm] Pulse Oximetry 98 97 Oxygen Delivery Method Room Air CPAP 06/30/22 08:10 06/30/22 12:48 Temperature 97.7 F 97.7 F Pulse Rate [Left] 16 L Pulse Rate [Right Radial] 74 78 Respiratory Rate 18 97 H Blood Pressure [Left Arm] 143/82 H 128/74 Blood Pressure [Left Upper Arm] Pulse Oximetry 98 Oxygen Delivery Method Room Air Room Air Assessment and Plan Assessment and plan (1) Cellulitis of right upper extremity: Problem details: Status post cat bite 06/27/2022 Status: Acute Assessment and Plan: WBC is normal today, Blood glucose is normal, however his A1C is 8.83 which means his average glucose has been about 200 for the last three mos. CRP is still elevated. His Potassium is low. He is getting Potassium. No fever. He feels overall well and has an appetite. Plan to continue the Unasyn as this is working well. Continue Ibuprofen, elevating, compression, ice. Dr Whalen will recheck him tomorrow. No surgery needed at this time as he is improving well. (2) Tenosynovitis of right hand: Problem details: Status post cat bite 06/27/2022 Status: Acute (3) Diabetes mellitus type 2 in obese: Problem details: Insulin requiring Status: Acute (4) Hypokalemia: Status: Acute (5) Cat bite: Problem details: 06/27/2022 Status: Acute
[2022-06-30 15:45] VITALS: BP 119/63; PULSE 79; RESP 18; TEMP 36.8; O2SAT 98
[2022-06-30 19:00] VITALS: BP 138/75; PULSE 72; RESP 18; TEMP 36.6; O2SAT 99
[2022-06-30] MEDS: ATORVASTATIN 10 MG TABLET PO (20:49)
[2022-06-30] MEDS: ASPIRIN 81 MG TABLET EC PO (20:51)
[2022-06-30 23:00] VITALS: RESP 20
[2022-07-01] MEDS: AMPICILLIN/SULBACTAM 3 GM in 0.9 % SODIUM CHLORIDE Mini-bag 100 ML IVPB ×3 (02:30→14:22)
[2022-07-01 03:00] VITALS: BP 119/74; PULSE 72; RESP 16; TEMP 36.8; O2SAT 95
--- NOTE | 2022-07-01 05:22 | PC.NURSE ---
shift note : Pt pleasant and cooperative, VSS on RA. Up independent in room and tolerating well. Right hand cellulitis continues to improve, less red and much less swollen per pt report. ABDULAZIZ wrap to right hand is C/D/I. Pt denies pain, SOB, CP, and N/V.
[2022-07-01 07:15] LABS: Basophils Absolute Auto 0.02 K/uL (0.00-0.30); Basophils Percent Auto 0.2 % (0.0-3.0); Eosinophils Absolute Auto 0.06 K/uL (0.00-0.50); Eosinophils Percent Auto 0.7 % (0.0-7.0); Hematocrit 38.9 % (37.0-53.0); Hemoglobin* 13.1 gm/dL (13.5-17.5); Immature Granulocytes Abs Auto 0.06 K/uL (0.00-0.30); Lymphocytes Percent Auto 11.1 % (20-44); Mean Corpuscular HGB Conc 34 gm/dL (32-36); Mean Corpuscular Hemoglobin 30 pg (26-34); Mean Corpuscular Volume 90 fL (80-100); Neutrophils Percent Auto 81.3 % (42.0-72.0); Platelet Count* 231 K/uL (140-440); RDW Coefficient of Variation % 13.5 % (11.5-15.5); Red Blood Count 4.34 m/uL (4.30-5.90)
[2022-07-01 07:18] LABS: Slide Review Reflex No
[2022-07-01 07:29] LABS: Chloride* 102 mmol/L (96-114); Sodium* 138 mmol/L (135-149)
[2022-07-01 07:30] LABS: Potassium* 3.6 mmol/L (3.6-5.1)
[2022-07-01 07:32] LABS: Carbon Dioxide* 27 mmol/L (20-32); Creatinine* 0.8 mg/dL (0.5-1.5); Estimated Glomerular Filt Rate 99 ml/min
[2022-07-01 07:33] LABS: Blood Urea Nitrogen* 18 mg/dL (7-30); Calcium* 8.4 mg/dL (8.4-10.6); Glucose* 56 mg/dL (60-115)
[2022-07-01 08:00] VITALS: BP 148/91; PULSE 16; PULSE 73; RESP 16; TEMP 36.8; O2SAT 97
[2022-07-01] MEDS: LOSARTAN POTASSIUM 50 MG TABLET 100 MG PO (08:43)
[2022-07-01] MEDS: hydroCHLOROthiazide 25 MG TABLET PO (08:43)
[2022-07-01] MEDS: buPROPion XL 150 MG TABLET 300 MG PO (08:43)
[2022-07-01] MEDS: ESCITALOPRAM 10 MG TABLET PO (08:43)
[2022-07-01] MEDS: POTASSIUM CHLORIDE 10 MEQ CAPSULE ER 40 MEQ PO (08:43)
[2022-07-01] MEDS: OMEPRAZOLE 20 MG CAPSULE DR PO (08:43)
[2022-07-01] MEDS: METFORMIN 1,000 MG TABLET 1000 MG PO (08:44)
[2022-07-01] MEDS: AMLODIPINE 5 MG TABLET PO (08:44)
[2022-07-01] MEDS: ACETAMINOPHEN 325 MG TABLET 650 MG PO ×2 (08:44→12:19)
--- NOTE | 2022-07-01 09:09 | P.IMPN_ITS ---
Progress Note: A&P Assessment and plan (1) Cellulitis of right upper extremity: Problem details: Status post cat bite 06/27/2022 -completed 3 days of Unasyn therapy. -continue for a total of 7 days of Augmentin, 10 days total therapy. Status: Acute (2) Cat bite: Problem details: 06/27/2022 Status: Acute (3) Diabetes mellitus type 2 in obese: Problem details: Insulin requiring -returned previous home regimen. Status: Acute Subjective Date Seen: 07/01/22 Interval history: HOSPITALIST DISCHARGE SUMMARY ATTENDING PHYSICIAN: Jackie Taylor MD FINAL DIAGNOSIS: Cat bite, right hand, date of injury 06/27/2022. S/P 3 DOSES OF IV UNASYN. Type 2 diabetes HOSPITAL FOLLOWUP ISSUES: 1. Augmentin for the next 7 days, 875 mg p.o. b.i.d. x #14 tabs, this is to finish 10 day regimen of antibiotics. REFERRALS WHILE ADMITTED: Orthopedics REFERRALS AFTER DISCHARGE: None BRIEF HOSPITAL COURSE: Bob is a 66-year-old type 2 diabetic who was bit on the right hand by his cat on or about June 27. He did proceed to urgent care and received evaluation within 24 hours of a cat bite. He was given 1 g of Rocephin. He was seen 24 hours after the ceftriaxone and was directed to our emergency room for further cares. He had increasing redness up the right arm and there was some concern for sepsis. However his blood cultures have remained negative and he has re sponded beautifully to IV Unasyn. This morning he is able to make a fist and have full range of motion about his fingers hand and elbow. Minimal redness is noted. Wounds are dry. VITAL SIGN, MEDICATION, LAB/MICRO, IMAGING REVIEWED Leukocytosis has resolved., white blood cell count today 9.0 Hemoglobin stable Platelets normal Potassium has returned to normal, magnesium normal Normal renal function Glucose was 56 this morning, other blood sugars have been 48, 89, 170, 113, 222 Hemoglobin A1c 8.8 Blood cultures are negative DISCHARGE MEDICATIONS: See Reconciled list REVIEW OF SYSTEMS No new chest pain or dyspnea Pain controlled No voiding difficulties Tolerating diet challenge PHYSICAL EXAM: CONSTITUTIONAL: VITAL SIGNS: see record. HEENT: Normocephalic, atraumatic. PERRL, EOMI, conjunctivae pink, no scleral icterus. Ears and nose externally normal. Pharynx normal. NECK: No JVD. No carotid bruit, no thyromegaly, no adenopathy. CHEST: Clear to auscultation bilaterally. HEART: S1 and S2 normal. Edema ABDOMEN: Soft, nontender. Normal bowel sounds. MUSCULOSKELETAL: No gross joint deformity or swelling. NEURO: Cranial nerves intact. Grossly intact. No asymmetric findings. SKIN: No rashes, petechiae, concerning changes PSYCHIATRIC: Mood euthymic. DISPOSITION: Time spent on discharge 37 minutes. Exam Const: Vital Signs, click to edit/add: Vital Signs - 24 hr 06/30/22 12:48 06/30/22 15:45 06/30/22 19:00 Temperature 97.7 F 98.2 F 98 F Pulse Rate [Left] 16 L Pulse Rate [Right Radial] 78 79 72 Respiratory Rate 97 H 18 18 Blood Pressure [Le ft Arm] 128/74 119/63 138/75 Pulse Oximetry 98 99 Oxygen Delivery Me thod Room Air Room Air Room Air 06/30/22 23:00 06/30/22 23:00 07/01/22 03:00 Temperature 98.2 F Pulse Rate [Left] Pulse Rate [Right Radial] 72 Respiratory Rate 20 20 16 Blood Pressure [Le ft Arm] 119/74 Pulse Oximetry 95 Oxygen Delivery Me thod CPAP CPAP 07/01/22 08:00 07/01/22 08:00 Temperature 98.2 F Pulse Rate [Left] 16 L 16 L Pulse Rate [Right Radial] 73 73 Respiratory Rate 16 16 Blood Pressure [Le ft Arm] 148/91 H Pulse Oximetry 97 Oxygen Delivery Me thod CPAP Labs Labs: Laboratory Results - last 24 hr 06/30/22 06/30/22 07/01/22 07:24 07:24 06:57 WBC 9.00 RBC 4.34 Hgb 13.1 L Hct 38.9 MCV 90 MCH 30 MCHC 34 RDW Coeff of Handy 13.5 Plt Count 231 Neut % (Auto) 81.3 H Lymph % (Auto) 11.1 L Preston % (Auto) 6.0 Eos % (Auto) 0.7 Baso % (Auto) 0.2 Neut # (Auto) 7.30 H Lymph # (Auto) 1.00 Preston # (Auto) 0.50 Eos # (Auto) 0.06 Baso # (Auto) 0.02 Abs Immat Gran (auto) 0.06 Sodium Potassium Chloride Carbon Dioxide BUN Creatinine Estimated Creat Clear Estimated GFR Glucose Hemoglobin A1c 8.83 H Calcium TSH 0.986 07/01/22 06:57 WBC RBC Hgb Hct MCV MCH MCHC RDW Coeff of Handy Plt Count Neut % (Auto) Lymph % (Auto) Preston % (Auto) Eos % (Auto) Baso % (Auto) Neut # (Auto) Lymph # (Auto) Preston # (Auto) Eos # (Auto) Baso # (Auto) Abs Immat Gran (auto) Sodium 138 Potassium 3.6 Chloride 102 Carbon Dioxide 27 BUN 18 Creatinine 0.8 Estimated Creat Clear 72.20 Estimated GFR 99 Glucose 56 L Hemoglobin A1c Calcium 8.4 TSH
[2022-07-01 09:34] LABS: C Reactive Protein* 6.6 mg/dL (0.5-1.0)
[2022-07-01 11:04] VITALS: BP 160/92; PULSE 88; RESP 16; TEMP 36.9; O2SAT 97
--- NOTE | 2022-07-01 12:15 | PM.DS1 ---
DS: Providers Provider Date Seen: 07/01/22 Date of admission: 06/30/22 11:56 Primary care physician: Ramin Dubon MD Admitting Clinician: Stanton Silva MD Attending Physician on discharge: Jackie Taylor MD [facility] Date of Discharge: 07/01/22 DS: Diagnosis Discharge Diagnosis (1) Cellulitis of right upper extremity: Status: Acute Problem details: Status post cat bite 06/27/2022 -completed 3 days of Unasyn therapy. -continue for a total of 7 days of Augmentin, 10 days total therapy. (2) Cat bite: Status: Acute Problem details: 06/27/2022 (3) Diabetes mellitus type 2 in obese: Status: Acute Problem details: Insulin requiring -returned previous home regimen. DS: Summary Hospital Course Hospital Course: HOSPITALIST DISCHARGE SUMMARY ATTENDING PHYSICIAN: Jackie Taylor MD FINAL DIAGNOSIS: Cat bite, right hand, date of injury 06/27/2022. S/P 3 DOSES OF IV UNASYN. Type 2 diabetes HOSPITAL FOLLOWUP ISSUES: 1. Augmentin for the next 7 days, 875 mg p.o. b.i.d. x #14 tabs, this is to finish 10 day regimen of antibiotics.? REFERRALS WHILE ADMITTED: Orthopedics REFERRALS AFTER DISCHARGE: None BRIEF HOSPITAL COURSE: Bob is a 66-year-old type 2 diabetic who was bit on the right hand by his cat on or about June 27.? He did proceed to urgent care and received evaluation within 24 hours of a cat bite.? He was given 1 g of Rocephin.? He was seen 24 hours after the ceftriaxone and was directed to our emergency room for further cares.? He had increasing redness up the right arm and there was some concern for sepsis.? However his blood cultures have remained negative and he has responded beautifully to IV Unasyn.? This morning he is able to make a fist and have full range of motion about his fingers hand and elbow.? Minimal redness is noted.? Wounds are dry. VITAL SIGN, MEDICATION, LAB/MICRO, IMAGING REVIEWED Leukocytosis has resolved., white blood cell count today 9.0 Hemoglobin stable Platelets normal Potassium has returned to normal, magnesium normal Normal renal function Glucose was 56 this morning, other blood sugars have been 48, 89, 170, 113, 222 Hemoglobin A1c 8.8 Blood cultures are negative DISCHARGE MEDICATIONS: See Reconciled list REVIEW OF SYSTEMS No new chest pain or dyspnea Pain controlled No voiding difficulties Tolerating diet challenge PHYSICAL EXAM: CONSTITUTIONAL: VITAL SIGNS: see record.? HEENT: Normocephalic, atraumatic. PERRL, EOMI, conjunctivae pink, no scleral icterus. Ears and nose externally normal. Pharynx normal. NECK: No JVD. No carotid bruit, no thyromegaly, no adenopathy. CHEST:? Clear to auscultation bilaterally.? HEART: S1 and S2 normal.? Edema ABDOMEN: Soft, nontender. Normal bowel sounds.? MUSCULOSKELETAL: No gross joint deformity or swelling. NEURO: Cranial nerves intact.? Grossly intact.? No asymmetric findings. SKIN:? No rashes, petechiae, concerning changes PSYCHIATRIC: Mood euthymic. DISPOSITION: ? Time spent on discharge 37 minutes. Status at Discharge Functional status at discharge: independent ambulation Overall status at discharge: patient is progressing back to baseline Time Spent with Patient Time attestation: Total time spent providing and/or coordinating discharge services: Time spent: Greater than 30 minutes Exam Const: Vital Signs, click to edit/add: Vital Signs - 24 hr 06/30/22 12:48 06/30/22 15:45 06/30/22 19:00 Temperature 97.7 F 98.2 F 98 F Pulse Rate [Left] 16 L Pulse Rate [Right Radial] 78 79 72 Respiratory Rate 97 H 18 18 Blood Pressure [Le ft Arm] 128/74 119/63 138/75 Pulse Oximetry 98 99 Oxygen Delivery Me thod Room Air Room Air Room Air 06/30/22 23:00 06/30/22 23:00 07/01/22 03:00 Temperature 98.2 F Pulse Rate [Left] Pulse Rate [Right Radial] 72 Respiratory Rate 20 20 16 Blood Pressure [Le ft Arm] 119/74 Pulse Oximetry 95 Oxygen Delivery Me thod CPAP CPAP 07/01/22 08:00 07/01/22 08:00 07/01/22 11:04 Temperature 98.2 F 98.4 F Pulse Rate [Left] 16 L 16 L 88 Pulse Rate [Right Radial] 73 73 88 Respiratory Rate 16 16 16 Blood Pressure [Le ft Arm] 148/91 H 160/92 H Pulse Oximetry 97 97 Oxygen Delivery Me thod CPAP CPAP DS: Data Data Completed and Pending Labs on day of discharge: Labs from last 24 hours 07/01/22 07/01/22 06:57 06:57 WBC 9.00 RBC 4.34 Hgb 13.1 L Hct 38.9 MCV 90 MCH 30 MCHC 34 RDW Coeff of Handy 13.5 Plt Count 231 Neut % (Auto) 81.3 H Lymph % (Auto) 11.1 L [place] % (Auto) 6.0 Eos % (Auto) 0.7 Baso % (Auto) 0.2 Neut # (Auto) 7.30 H Lymph # (Auto) 1.00 [place] # (Auto) 0.50 Eos # (Auto) 0.06 Baso # (Auto) 0.02 Abs Immat Gran (auto) 0.06 Sodium 138 Potassium 3.6 Chloride 102 Carbon Dioxide 27 BUN 18 Creatinine 0.8 Estimated Creat Clear 72.20 Estimated GFR 99 Glucose 56 L Calcium 8.4 C-Reactive Protein 6.6 H Preliminary micro results at discharge 06/29/22 11:18 Blood Culture - Preliminary Blood NO GROWTH AFTER 48 HOURS 06/29/22 11:22 Blood Culture - Preliminary Blood NO GROWTH AFTER 48 HOURS Discharge Plan Discharge Disposition: Home, Self-Care Date of Admission: 06/30/22 11:56 Attending Provider on Discharge: Jackie Taylor Primary Care Provider: Ramin Dubon Condition: Stable Anticipated Discharge Date/Time: 07/01/22 15:00 Discharge Medications: New amoxicillin-pot clavulanate 875-125 mg Tablet 875 mg PO BIDWM Qty: 14 0RF Continued albuterol sulfate [Ventolin HFA] 90 mcg/actuation HFA aerosol inhaler 2 inh INHALATION Q4H PRN Label Comments: INHALE 2 PUFFS BY MOUTH EVERY FOUR HOURS IF NEEDED FOR WHEEZING 2ND CHOICE. amlodipine 5 mg tablet 5 mg PO DAILY Label Comments: TAKE 1 TABLET (5 MG) BY MOUTH ONCE DAILY. atorvastatin 10 mg tablet 10 mg PO HS Label Comments: TAKE 1 TABLET (10 MG) BY MOUTH ONCE DAILY WITH EVENING MEAL. bupropion HCl 300 mg tablet extended release 24 hr 300 mg PO DAILY Label Comments: TAKE 1 TABLET (300 MG) BY MOUTH EVERY MORNING. escitalopram oxalate 10 mg tablet 10 mg PO DAILY Label Comments: TAKE 1 TABLET (10 MG) BY MOUTH EVERY MORNING. hydrochlorothiazide 50 mg tablet 50 mg PO DAILY Label Comments: TAKE 1 TABLET (50 MG) BY MOUTH ONCE DAILY. Toujeo Max U-300 SoloStar 300 unit/mL (3 mL) insulin pen 160 unit SUBCUT DAILY Label Comments: INJECT 160 UNITS SUBCUTANEOUS ONCE DAILY IN THE EVENING. insulin lispro 100 unit/mL insulin pen 20 - 30 unit SUBCUT TIDWMEAL Label Comments: INJECT 20-30 UNITS SUBCUTANEOUSLY THREE TIMES DAILY BEFORE MEALS. losartan 100 mg tablet 100 mg PO DAILY Label Comments: TAKE 1 TABLET (100 MG) BY MOUTH ONCE DAILY. metformin 1,000 mg tablet 1,000 mg PO BID Label Comments: TAKE ONE TABLET BY MOUTH TWICE A DAY methylphenidate HCl 10 mg tablet 10 mg PO DAILY PRN Label Comments: TAKE ONE TABLET BY MOUTH IN THE AFTERNOON NEEDED FOR ADHD SYMPTOMS methylphenidate HCl [Concerta] 36 mg tablet extended release 24hr 36 mg PO DAILY Label Comments: TAKE 1 TABLET (36 MG) BY MOUTH ONCE DAILY. pantoprazole 20 mg tablet,delayed release (DR/EC) 20 mg PO DAILY Label Comments: TAKE 1 TABLET (20 MG) BY MOUTH ONCE DAILY. Ozempic 0.25 mg or 0.5 mg(2 mg/1.5 mL) pen injector 0.5 mg SUBCUT MO@09 Label Comments: INJECT 0.5MG SUBCUTANEOUSLY ONCE WEEKLY aspirin 81 mg capsule 81 mg PO HS Allergy Relief D-24hr 10-240 mg tablet extended release 24 hr 1 tab PO HS fluticasone propionate [24 Hour Allergy Relief] 50 mcg/actuation spray,suspension 2 spray intranasal DAILY PRN Rx Instructions: administer into each nostril Discontinued amoxicillin-pot clavulanate 875-125 mg tablet 1 tab PO Q12H Label Comments: TAKE ONE TABLET BY MOUTH TWICE A DAY WITH FOOD FOR 10 DAYS Discharge Orders: Discharge Order (Routine); Ordered 07/01/22 Ordered By: Jackie Taylor Additional Instructions: No work thru Tuesday 07/03, may return on 07/04. I am recommending 7 days of Augmentin; it is the same dose from last week, 875mg - I've sent a new rx but you can use up what you have and only pay and pickle pumper what you need to complete 14 doses. warm soaks are fine; epson salts are fine too. Activity Level: Activity as Tolerated Discharge Diet: Diabetic Follow Up Appointments: Ramin Dubon MD [Primary Care Provider] - Javier Henderson MD [Referring] - Forms: [employer] Info Instructions
[2022-07-01] MEDS: AMOXICILLIN/CLAVULANATE 875 mg/125 mg TABLET PO (12:20)
--- NOTE | 2022-07-01 15:55 | PC.NURSE ---
Discharge. pt has been pleasant. no pain. he is up ab leah. he is eating. drinking and voiding. he had a episode of loose stool encourage probiotics. Right hand cellulitis continues to improve, less red and much less swollen per pt. . ABDULAZIZ wrap to right hand is C/D/I it was on and off. he got PO and IV antibiotics. SL was d/c intact. went over discharge packet with pt. went over 1 meds. pt needs to call for appt. education and instructions. pt went over and signed personal belongings sheet. he packet up all belongings and paperwork and was walked out by CLINICAL CARE COORDINATOR.
[2022-07-01 15:59] VITALS: RESP 16; TEMP 36.9
== END 2022-07-01 15:45 | disposition home or self-care (01) ==
LOC: ED 13:29 → MEDSURG 18:39
PROVIDERS: Family Medicine; Hospitalist; Admitting Provider Internal Medicine; Emergency Provider Family Medicine; PCP Family Medicine; Visit Provider Family Medicine
DX: L03.113 Cellulitis of right upper limb (principal); M65.9 Synovitis and tenosynovitis, unspecified; S60.321A Blister (nonthermal) of right thumb, initial encounter; E11.69 Type 2 diabetes mellitus with other specified complication; E66.9 Obesity, unspecified; Z68.41 Body mass index [BMI] 40.0-44.9, adult; I10 Essential (primary) hypertension; E87.6 Hypokalemia; K21.9 Gastro-esophageal reflux disease without esophagitis; E78.5 Hyperlipidemia, unspecified; Z79.84 Long term (current) use of oral hypoglycemic drugs; W55.01XA Bitten by cat, initial encounter; Z79.82 Long term (current) use of aspirin; Z79.4 Long term (current) use of insulin; D72.829 Elevated white blood cell count, unspecified; L53.8 Other specified erythematous conditions; Z23 Encounter for immunization; R79.82 Elevated C-reactive protein (CRP)
CPT/HCPCS: 36415; 80048; 82947; 82962; 83036; 83605; 83735; 84100; 84443; 85025; 85027; 85651; 86140; 87040; 87635; 90471; 90715; 96365; 96366; 96372; 96375; 99284; A9270; G0378; J0295

== ENCOUNTER 2024-11-08 16:33 | Emergency (ER) | payer MEDICARE, BC, SELFPAY ==
--- OUTSIDE RECORDS SUMMARY | 2024-11-08 16:35 | XMS_ITS | Clinical Summary ---
Author Organization [facility] Address [address] [place] [id number] Care Team Providers Care Powder Truck Driver Name Role Phone Hitesh Mariah A RD Unavailable [phone] Jay Brown DO Primary Care Provider [phone] Michelle Alvarez Unavailable [phone] Allergies Active Allergy Reactions Criticality Noted Date Comments Unlisted Allergen (Include Detail In Comments) Other - Describe In Comment Field 12/27/2015 River birch tree pollen, ragweed and hayfever. Also dust mites-nasal congestion Ragweed Pollen Other - Describe In Comment Field 08/30/2022 Medications aspirin enteric coated 81 mg tablet Take 1 tablet by mouth once daily with a meal. 0 12/03/19 14 Active lancets (ACCU-CHEK FASTCLIX LANCET DRUM)Indications: Controlled type 2 diabetes mellitus without complication, unspecified whether correction insulin use (HC) Dispense item covered by pt ins. E11.65 NIDDM type II, uncontrolled - Test 3 times/day, Reason: High A1C 100 Each 5 06/19/20 18 Active ACCU-CHEK FASTCLIX LANCET DRUMIndications:C ontrolled type 2 diabetes mellitus without complication, unspecified whether correction insulin use (HC) TEST THREE TIMES DAILY 300 Each 3 07/17/20 19 Active blood sugar diagnostic (Accu-Chek Guide test strips) stripIndications: Controlled type 2 diabetes mellitus without complication, unspecified whether long term care pharmacist insulin use (HC) Dispense item covered by pt ins. E11.9 IDDM type II - Test 3 times/day.TEST THREE TIMES DAILY. High A1C. 300 Strip 3 04/01/20 21 Active medication order composerIndicatio ns:Type 2 diabetes mellitus without complication, with long-term current use of insulin (HC) Dexcom 6 display device 1 Device 05/30/20 22 Active Dexcom G6 Contaminated Land Consultant for continuous blood glucose monitor (CGM) USE DIRECTED 05/30/20 22 Active fluticasone (50 mcg per actuation) nasal solution (FLONASE) As Directed 06/29/20 22 Active amLODIPine (NORVASC) 5 mg tabletIndications :HTN (hypertension) Take 1 Tablet (5 mg) by mouth once daily. 90 Tablet 3 03/20/20 23 Active hydroCHLOROthiazi de 50 mg tabletIndications :Hypertension, unspecified type Take 1 Tablet (50 mg) by mouth once daily. 90 Tablet 3 03/20/20 23 Active Insulin [place], Disposable, (Gloria Pen Needle) 32 gauge x 5/32Indications: Type 2 diabetes mellitus without complication, without long-term current use of insulin (HC) USE 5/DAY FOR INJECTION OF MEDICATION-VICT RANDA AND INSULINS 500 Each 3 07/05/20 23 Active triamcinolone (ARISTOCORT; KENALOG) 0.1 % creamIndications: Dermatitis Apply topically to affected area(s) three times daily. 80 g 08/11/20 23 Active ketoconazole 2% topical (NIZORAL) creamIndications: Tinea pedis of both feet Apply topically to affected area(s) two times daily. 60 g 08/11/20 23 Active metFORMIN (GLUCOPHAGE) 1,000 mg tabletIndications :Type 2 diabetes mellitus without complication, with long-term current use of insulin (HC) TAKE ONE TABLET BY MOUTH TWICE A DAY 180 Tablet 12/12/19 24 Active sildenafiL, pulm.hypertension , (REVATIO) 20 mg tabletIndications :Erectile dysfunction of organic origin Take 1-5 pills (start at lower dose and increase next time if needed) 30 mins prior to sexual intercourse 30 Tablet 1 12/22/19 24 Active CPAPIndications:O SA (obstructive sleep apnea) Resmed CPAP machine for home use at pressure 7 cmw, CPAP mask- mask of choice, fit to comfort one per 3 months 1 Each 11 01/27/20 24 Active dextroamphetamine sulfate (DEXEDRINE; DEXTROSTAT; ZENZEDI) 5 mg tabletIndications :ADHD (attention deficit hyperactivity disorder), combined type Take 1 Tablet (5 mg) by mouth once daily. 30 Tablet 03/23/20 24 Active chlorhexidine (PERIDEX) 0.12 % solution Swish and spit 15 mL by mouth one time if needed. 01/26/20 24 Active trimethoprim-poly myxin b (POLYTRIM) ophthalmic solutionIndicatio ns:Bacterial conjunctivitis of both eyes Place 1 Drop into both eyes every 4 hours. Use for 7 days 10 mL 05/12/20 24 Active pantoprazole (PROTONIX) 20 mg tabletIndications :Chronic GERD TAKE ONE TABLET (20 MG) BY MOUTH ONCE DAILY. 90 Tablet 2 05/24/20 24 Active lisdexamfetamine (VYVANSE) 40 mg capsuleIndication s:ADHD (attention deficit hyperactivity disorder), combined type TAKE 1 CAPSULE (40 MG) BY MOUTH ONCE DAILY. EFF DATE: 06/10/24 30 Capsule 08/04/20 24 Active lisdexamfetamine (Vyvanse) 40 mg capsuleIndication s:ADHD (attention deficit hyperactivity disorder), combined type Take 1 Capsule (40 mg) by mouth once daily. 30 Capsule 10/02/19 25 Active cetirizine (ZYRTEC) 10 mg tabletIndications :Perennial allergic rhinitis Take twice daily 180 Tablet 3 09/13/20 24 Active atorvastatin (LIPITOR) 10 mg tabletIndications :Hyperlipidemia, unspecified hyperlipidemia type TAKE ONE TABLET (10 MG) BY MOUTH ONCE DAILY WITH EVENING MEAL. 90 Tablet 1 09/13/20 24 Active losartan (COZAAR) 100 mg tabletIndications :Hypertension, unspecified type TAKE ONE TABLET (100 MG) BY MOUTH ONCE DAILY. 90 Tablet 1 09/13/20 24 Active insulin glargine, U-300, (Toujeo Max U-300 SoloStar) 300 unit/mL (3 mL) inpn penIndications:Ty pe 2 diabetes mellitus without complication, with long-term current use of insulin (HC) Inject 160 units subcutaneous once daily. 54 mL 10/07/19 25 Active transmitter (ICB Internationalcom G6 Transmitter) for continuous blood glucose monitor (CGM)Indications: Type 2 diabetes mellitus without complication, with long-term current use of insulin (HC) To be used to read blood sugars, follow grant officer directions. 1 Each 10/07/19 Active sensor (Dexcom G6 Sensor) for continuous blood glucose monitor (CGM)Indications: Type 2 diabetes mellitus without complication, with long-term current use of insulin (HC) To be used to read blood sugars, follow grant officer directions. 9 Each 10/07/19 Active insulin lispro, U-100, (HUMALOG KWIKPEN; ADMELOG SOLOSTAR) 100 unit/mL inpn penIndications:Ty pe 2 diabetes mellitus without complication, with long-term current use of insulin (HC) Inject 10 units subcutaneous three times daily before meals. 15 mL 10/07/19 25 Active tamsulosin 0.4 mg capsuleIndication s:Lower urinary tract symptoms (LUTS) Take 1 Capsule (0.4 mg) by mouth once daily after a meal. 90 Capsule 10/20/19 25 Active buPROPion (WELLBUTRIN XL) 300 mg Extended-Release tabletIndications :Depression, unspecified depression type Take 1 Tablet (300 mg) by mouth once daily in the morning. 90 Tablet 10/20/19 25 Active escitalopram oxalate (LEXAPRO) 10 mg tabletIndications :Depression, unspecified depression type,Anxiety Take 1 Tablet (10 mg) by mouth once daily in the morning. 90 Tablet 10/20/19 25 Active buPROPion (WELLBUTRIN XL) 300 mg Extended-Release tabletIndications :Depression, unspecified depression type Take 1 Tablet (300 mg) by mouth once daily in the morning. 30 Tablet 5 04/19/20 24 025 Discontinu ed(Reorder (E-cancel not sent)) escitalopram oxalate (LEXAPRO) 10 mg tabletIndications :Depression, unspecified depression type,Anxiety TAKE 1 TABLET (10 MG) BY MOUTH ONCE DAILY IN THE MORNING. 30 Tablet 09/28/19 25 025 Discontinu ed(Reorder (E-cancel not sent)) amoxicillin-clavu lanate (AUGMENTIN) 875-125 mg tabletIndications :Sinusitis, unspecified chronicity, unspecified location Take 1 Tablet by mouth two times daily with meals for 5 days. 10 Tablet 10/07/19 25 025 sodium phosphates (FLEETS) enemaIndications: Elevated PSA Insert 133 mL rectally one time for 1 dose. Take morning of biopsy 133 mL 10/20/19 25 025 levoFLOXacin (LEVAQUIN) 500 mg tabletIndications :Prophylactic antibiotic Take 1 Tablet (500 mg) by mouth once daily for 1 day. Take the AM of the biospy 1 Tablet 10/20/19 25 025 Active Problems Problem Noted Date Diagnosed Date Type 2 diabetes mellitus with obesity 03/24/2024 Obesity, Class II, BMI 35-39.9 03/20/2023 Depression, recurrent 03/20/2023 Type 2 diabetes mellitus wit h hyperglycemia, with long-term current use of insulin 07/19/2022 Controlled substance agreement signed 12/10/2021 Overview (12/10/2021): 12/10/21 Lise Prater MD/psychiatry Marital conflict 10/09/2018 ADHD (attention deficit hype ractivity disorder), combined type 10/31/2017 QIAN 07/31/2012 AHI-53 08/09/2012 Adjustment disorder with mixed anxiety and depre ssed mood 05/28/2012 Overview (05/28/2012): Rule out adult ADD Benign neoplasm of colon 12/22/2009 Overview (01/24/2015): Colonoscopy 12/2009 polyp repeat in 5 years Colonoscopy 01/2015 polyp repeat in 5 years Allergic rhinitis, cause unspecified 04/10/2007 Overview (04/10/2007): Allergic rhinitis Unspecified asthma(493.90) 12/11/2006 Essential hypertension 12/11/2006 Esophageal reflux 12/11/2006 HISTOPLASMOSIS 12/11/2006 Resolved Problems Problem Noted Date Diagnosed Date Resolved Date Type 2 diabetes mellitus wit hout complication, with long-term current use of insulin 06/21/2021 07/16/2023 Uncontrolled type 2 diabetes mellitus, without long-term current use of insulin 06/07/2021 06/21/2021 Controlled substance agreement signed 11/09/2019 12/10/2021 Overview (11/09/2019): Signed 11/08/2019 Dr Lise Prater Psychiatry Depression 04/17/2018 11/09/2020 Controlled substance agreement signed 01/16/2018 12/10/2021 Overview (01/16/2018): 01/16/18 signed .Bette Gordillo DNP, FENCE INSTALLER FOREMAN, BARREL AND RECEIVER ALIGNER/psychiatry Anxiety 10/31/2017 11/09/2020 Controlled substance agreement signed 02/18/2017 02/01/2019 Overview (02/18/2017): Signed 12/27/15 Dr. Scottie Medel MD / psychiatry Depressive disorder, not elsewhere classified 11/11/19 15 11/09/2020 Overview (11/11/2014): Episodic intense depression periods/ not clearly bipolar/ not clearly major depression Diabetes mellitus type II, controlled 08/17/2012 06/21/2021 Attention deficit disorder w ith hyperactivity(314.01) 06/10/2012 10/31/2017 Allergic rhinitis, cause unspecified 12/11/2006 08/03/2012 Encounters Date Type Department Care Team Description 11/08/2024 Nurse Triage [facility] [address] [place] [address] Jay Brown DO High Blood Sugar 11/02/2024 11:44 AM ORDER PICKER - 11/02/2024 11:59 PM ORDER PICKER Hospital Encounter [address] [address] Jay Brown DO Ming, Lin, SOAP PRESS FEEDER 11/02/2024 Travel 10/26/2024 11:53 AM ORDER PICKER - 10/26/2024 11:59 PM ORDER PICKER Hospital Encounter [address] [address] Jay Brown DO Ming, Lin, SOAP PRESS FEEDER 10/26/2024 Travel 10/21/2024 Telephone [facility] [address] [place] [address] Jay Brown DO Results 10/20/2024 12:30 PM ORDER PICKER Office Visit [facility] [address] [place] [address] Michelle Alvarez PA Consult (Z80.42 (ICD-10-CM) - Family history of prostate cancer/R97.20 (ICD-10-CM) - Elevated PSA//) 10/20/2024 11:00 AM ORDER PICKER Ancillary Procedure [facility] [address] [place] [address] 10/20/2024 10:15 AM ORDER PICKER Office Visit [facility] [address] [facility] [place] [address] Lise Prater MD Medication Management 10/20/2024 8:45 AM ORDER PICKER - 10/20/2024 11:59 PM ORDER PICKER Hospital Encounter [address] [address] Jay Brown DO Noble, Isaac J, PT Lumbar spine pain; Weakness of both legs 10/20/2024 Travel 10/19/2024 Telephone [facility] [address] [place] [address] Jay Brown DO Prior Authorization (transmitter (ThisClicks G6 Transmitter) for continuous blood glucose monitor (CGM )DME PART B)) 10/07/2024 11:15 AM ORDER PICKER Ancillary Procedure [facility] [address] [place] [address] 10/07/2024 11:00 AM ORDER PICKER Ancillary Procedure [facility] [address] [place] [address] 10/07/2024 9:45 AM ORDER PICKER Office Visit [facility] [address] [place] [address] Jay Brown DO Diabetes (6 months ); Medication Management (Insulin coverage ); Back Pain (Lower back pain x 6 months having hard time walking /) 10/07/2024 Telephone [facility] [address] [place] [address] Shaqra, Adei, DO Medication Management 10/07/2024 Travel 09/25/2024 Refill [facility] [address] [facility] [place] [address] Lise Prater MD Refill Request (Escitalopram Oxalate) 09/07/2024 Refill [facility] [address] [facility] [place] [address] Jay Brown, Refill Request (Cetirizine) 09/07/2024 Refill [facility] [address] [facility] [place] [address] Jay Brown, DO Refill Request (Insulin Lispro (U-100), Atorvastatin, Losartan) from Last 3 Months Immunizations Name Administration Dates Next Due COVID-19 vaccine (Moderna 100mcg/0.5mL) PF, MDV 12/07/2020,11/08/2020 COVID-19 vaccine ([place]-Bio NTech 30mcg/0.3mL) 12YO+ BIVALENT PF, MDV 03/20/2023,07/19/2022 COVID-19 vaccine (Pfizer-Bio NTech 30mcg/0.3mL) 12YO+ JOHNNIE-SUCROSE PF, MDV 12/26/2021 COVID-19 vaccine ([place]-Bio NTech 30mcg/0.3mL) PF, MDV 08/22/2021 Influenza A (H1N1), Inactivated 08/14/2009 Influenza A (H1N1), Inactiva julissa (Age >=3 Years) 08/14/2009 Influenza, High-dose Inactivated 07/02/2024 Influenza, IIV3 (Age 6-35 mos) 07/03/2011 Influenza, IIV3 (Age >=3 years) 06/19/20 13,08/03/2012,07/02/2011,2007,07/16/2006,10/08/2005 Influenza, IIV4 07/19/2022,,07/22/2019,2017,08/15/2017,07/25/2016,06/17/2014,1 Influenza, IIV4 (=>6mos) MDV 06/05/2015 Influenza, Inactivated AIIV4 (Age 65+ Years) Preserv Free 07/03/2023 Influenza,CCIIV4 PRESERV FREE 06/21/2020 MMR 12/30/2005 Pneumococcal Conj 20-valent (Prevnar 20) 10/21/2022 Pneumococcal Poly,23-Valent (Pneumovax) 08/21/2018 Td (Age >=7 Years) 09/15/2002 Tdap 06/29/2022,08/03/2012 Zoster (Shingrix-RZV, recombinant) 05/09/2020, Family History Medical History Relation Name Comments Cancer Father prostate Diabetes Father Other Father prostate ca Cancer Maternal Uncle prostate Diabetes Mother prediabetic Other Paternal Uncle prostate ca i n 2 uncles Relation Name Status Comments Father Maternal Uncle Mother Paternal Uncle Sister Alive Social History Tobacco Use Types Packs/Day Years Used Date Smoking Tobacco: Never Smokeless Tobacco: Never Tobacco Cessation:Counseling Given: Yes Alcohol Use Standard Drinks/Week Comments Yes 0 (1 standard drink = 0.6 oz pur e alcohol) Little PHQ-2 Answer Date Recorded PHQ-2 TOTAL SCORE 2 10/20/2024 Social Connections Answer Date Recorded Do you often feel lonely or isolated from those around you? 4 10/07/2024 Alcohol Use Answer Date Recorded How often do you have a drink containing alcohol ? 2 05/30/2022 How many drinks containing a lcohol do you have on a typical day when you are drinking? 0 05/30/2022 Frequency of Binge Drinking Not on file 05/16 Financial Resource Strain Answer Date R ecorded Difficulty of Paying Living Expenses 3 10/07/2024 Difficulty of Paying Living Expenses Not on file 10/07/2024 Food Insecurity Answer Date Recorded Do you worry your food will run out before you are able to buy more? 1 10/07/2024 Transportation Needs Answer Date Record ed Does lack of transportation keep you from medica l appointments? 1 10/07/2024 Does lack of transportation keep you from work, meetings or getting things that you need? 1 10/07/2024 Housing Stability Answer Date Recorded What is your housing situation today? 1 10/07/2024 Utilities Answer Date Recorded Do you have trouble paying f or utilities (for example, heat, electricity, water, phone)? 1 10/07/2024 Sex and Gender Information Value Date Recorded Sex Assigned at Male 10/02/2021 7:53 PM ORDER PICKER Legal Sex Male 6:16 AM ORDER PICKER Gender Identity Male 10/02/2021 7:53 PM ORDER PICKER Sexual Orientation Straight 10/02/2021 7: 53 PM ORDER PICKER Travel History Travel Start Travel End [place] 10/16/2024 10/19/2024 Obstetrics History Last Filed Vital Signs Vital Sign Reading Time Taken Comments Blood Pressure 138/92 10/20/2024 12:43 PM ORDER PICKER Pulse 84 10/20/2024 12:43 PM ORDER PICKER Temperature 36.8 C (98.2 F) 07/16/2023 8:38 AM CDT Respiratory Rate 20 07/23/2023 8:12 AM ORDER PICKER Oxygen Saturation 99% 10/07/2024 10:00 AM ORDER PICKER Inhaled Oxygen Concentration - - Weight 108.6 kg (239 lb 8 oz) 10/20/2024 12:43 P M ORDER PICKER Height 172.4 cm (5' 7.87) 01/27/2024 9:30 AM CD T Body Mass Index 36.56 01/27/2024 9:30 AM CDT Plan of Treatment Upcoming Encounters Date Type Department Care Team (Late st Contact Info) Description 11/09/2024 1:00 PM ORDER PICKER Appointment [facility] [address] [place] [address] Danny Benavides, PT [address] [place] [address] 11/16/2024 1:00 PM ORDER PICKER Appointment [facility] [address] [place] [address] Danny Benavides, PT [address] [place] [address] 11/16/2024 2:30 PM ORDER PICKER Orders Only [facility] [address] [place] [address] Lab, Located Within [facility] 11/16/2024 3:15 PM ORDER PICKER Appointment [facility] [address] [place] [address] 01/05/2025 10:35 AM CDT Office Visit [facility] [address] [place] [address] Jay Brown DO [address] [facility] [address] 01/17/2025 1:45 PM CDT Office Visit [facility] [address] [place] [address] Lise Prater MD [address] [place] [address] Health Maintenance Due Date Last Done Comments Medicare Wellness for age 65+ 2022 BMI (ht and wt on same day) for age 18+ 01/26/2025 01/27/2024, 03/20/2023, 10/04/2022, Additional history exists Colonoscopy through age 75 08/17/202508/17, 08/17/2020, 08/17/2020, Additional history exists Depression screening for age 12+ 10/21/2025 10/21/2024, 10/20/2024, 10/20/2024, Additional history exists Lipids for age 45-75 05/07/2029 05/07/2024, 03/20/2023, 02/21/2022, Additional history exists Tetanus booster 06/29/2032 06/29/2022, 07/16, 09/15/2002 RSV vaccine for adults or (1 - 1-dose 75+ series) 2032 Zoster (shingles) series for age 50+ Completed 05/09/2020, 07/22/2019 Hepatitis C screening for ag e 18-79 Completed 09/26/2021 Tdap Completed 06/29/2022, 08/03/2012 Pneumococcal series for age 50+ Completed , 08/21/2018 COVID-19 vaccine series Completed 07/02/20 24, 07/03/2023, 03/20/2023, Additional history exists Influenza for age 65+ Completed 07/02/2024 , 07/03/2023, 07/19/2022, Additional history exists Procedures Procedure Name Priority Date/Time Associated Diagnosis Comments ECHO TTE COMPLETE WO CONTRAST Routine 10/20/2024 11:34 AM ORDER PICKER Ascending aorta dilation SD SHAUN POST-VOIDING RESIDUAL URINE&/BLADDER CAP Routine 10/20/2024 12:00 AM ORDER PICKER Elevated PSA Lower urinary tract symptoms (LUTS) XR SPINE LUMBAR 3 VIEWS Routine 10/07/2024 11:17 AM ORDER PICKER Lumbar spine pain Weakness of both legs XR CHEST 2 VIEWS PA AND LATERAL Routine 10/07/2024 11:17 AM ORDER PICKER Acute non-recurrent frontal sinusitis BASIC METABOLIC PANEL Routine 10/07/2024 10:49 AM ORDER PICKER Type 2 diabetes mellitus with obesity (HC) PSA TOTAL Routine 10/07/2024 10:49 AM ORDER PICKER Family history of prostate cancer Frequency of micturition HEMOGLOBIN A1C MONITORING (POCT) Routine 10/07/2024 10:48 AM ORDER PICKER Type 2 diabetes mellitus without complication, with long-term current use of insulin (HC) LIPID PANEL W REFLEX MEASURED LDL Routine 05/07/2024 10:55 AM CDT Type 2 diabetes mellitus with hyperglycemia, with long-term current use of insulin (HC) ANTI HCV Routine 09/26/2021 10:56 AM ORDER PICKER Need for hepatitis C screening test COLONOSCOPY SCREENING Routine 08/17/2020 10:42 AM ORDER PICKER History of colon polyps from Last 3 Months or Most Recently Relevant to Health Maintenance Results * ECHO TTE COMPLETE WO CONTRAST (10/20/2024 11:34 AM ORDER PICKER) AORTIC VALVE MEAN PG 4 mmHg EJECTION FRACTION 62 % LVEDD 4.0 cm Anatomical Region Laterality Modality Ultrasound 10/20/2024 11:0 2 AM ORDER PICKER Narrative 10/20/2024 12:22 PM ORDER PICKER ECHOCARDIOGRAM JULIÁN REED : 1955 69 years Study Date: 10/20/2024 11:02:47 AM Gender: M BP: 167/88 mmHg Height: 170.00 cm BSA: 2.18 m Weight: 109.00 kg Tech: JACK Referring MD: JAY BROWN Site: [facility] Reading Location: Mobile-OP Patient Location: Outpatient. Procedure: 2D, Color Doppler and Spectral Doppler. Indication for study: Ascending aorta dilation (HC) Cardiac Rhythm: Regular.Study quality: Fair. Final Impressions: 1. Normal left ventricular size, normal wall thickness, normal global systolic function, calculated EF of 62 %. 2. The aortic sinus is normal for age/sex/bsa with a maximal diameter of 4.2 cm. 3. For aortic dilation f/u recommendations, please refer to [email or web address]. Comparison Compared to prior exam of 06/12/21, there has been no significant change. Prior AR 4.3, AA 4.1. Chamber Sizes and Function Normal left ventricular size, normal wall thickness, normal global systolic function, calculated EF of 62 %. No resting regional wall motion abnormality visualized. Left atrial size is normal. Left atrial pressure is normal. Right ventricular cavity size is normal, global systolic RV function is normal. RV wall thickness is normal. The right atrium is normal. Right atrial volume index is 16 ml/m . Right atrial area is 16 cm . The pulmonary artery is of normal size and origin. The sinus of Valsalva is normal for age/sex/bsa. The ascending aorta is normal sized. Valves, RV Pressures and Diastolic Function The aortic valve is normal in structure and trileaflet, no stenosis and no regurgitation. The mitral valve is normal in structure, trace mitral regurgitation. Normal diastolic function. The tricuspid valve is normal in structure. Tricuspid regurgitation is trace regurgitation. The pulmonic valve is normal. Mild pulmonary regurgitation. Masses, Effusion, Shunts There is no pericardial effusion. The inferior vena cava is normal sized, respiratory size variation greater than 50%. No left to right shunting was detected by limited color flow Doppler interrogation of the interatrial septum. MEASUREMENTS AND CALCULATIONS 2-D Measurements and LV Function: LVID (d) 4.0 cm Planimetered EF 62 % LVID (s) 2.6 cm LV FS% (2D) 35 % IVS (d) 1.0 cm LVOT diameter 2.5 cm LVPW (d) 1.0 cm HR 92 bpm Ao Sinus 4.2 cm LA Vol index 22 ml/m2 Asc Ao 4.0 cm RA Vol index 16 ml/m2 LA 3.6 cm RA area 16 cm RV Max 4C (d) 3.1 cm Diastology: Mitral Tissue Doppler E Peak 0.7 m/s e', Septum 0.06 m/s A Peak 1.0 m/s e', Lateral 0.06 m/s E/A 0.7 E/e' Average 11.31 DT 157 msec Aortic Valve: Vmax 1.2 m/s SUSAN (V) 4.04 cm VTI 0.28 m SUSAN (I) 3.67 cm LVOT V max 1.0 m/s Max PG 6 mmHg LVOT VTI 0.21 m Mean PG 4 mmHg SV 103 ml Dim Index 0.76 SV index 47 ml/m CO 9.5 l/min CI 4.3 l/min/m Mitral Valve: MVA 4.8 cm MV P 1/2 46 msec Tricuspid Valve and estimated PA pressures: TAPSE 2.8 cm . This study was interpreted by an [facility] accredited facility. Final Procedure Note Sai Antunez MD - 10/20/2024 ECHOCARDIOGRAM JULIÁN REED : 1955 69 years Study Date: 10/20/2024 11:02:47 AM Gender: M BP: 167/88 mmHg Height: 170.00 cm BSA: 2.18 m Weight: 109.00 kg Tech: JACK Referring MD: JAY BROWN Site: [facility] Reading Location: Mobile-OP Patient Location: Outpatient. Procedure: 2D, Color Doppler and Spectral Doppler. Indication for study: Ascending aorta dilation (HC) Cardiac Rhythm: Regular.Study quality: Fair. Final Impressions: 1. Normal left ventricular size, normal wall thickness, normal globalsystolic function, calculated EF of 62 %. 2. The aortic sinus is normal for age/sex/bsa with a maximal diameter of4.2 cm. 3. For aortic dilation f/u recommendations, please refer [email or web address]. Comparison Compared to prior exam of 06/12/21, there has been no significant change. Prior AR 4.3, AA 4.1. Chamber Sizes and Function Normal left ventricular size, normal wall thickness, normal globalsystolic function, calculated EF of 62 %. No resting regional wall motionabnormality visualized. Left atrial size is normal. Left atrial pressureis normal. Right ventricular cavity size is normal, global systolic RVfunction is normal. RV wall thickness is normal. The right atrium isnormal. Right atrial volume index is 16 ml/m . Right atrial area is 16cm . The pulmonary artery is of normal size and origin. The sinus ofValsalva is normal for age/sex/bsa. The ascending aorta is normal sized. Valves, RV Pressures and Diastolic Function The aortic valve is normal in structure and trileaflet, no stenosis and noregurgitation. The mitral valve is normal in structure, trace mitralregurgitation. Normal diastolic function. The tricuspid valve is normal instructure. Tricuspid regurgitation is trace regurgitation. The pulmonicvalve is normal. Mild pulmonary regurgitation. Masses, Effusion, Shunts There is no pericardial effusion. The inferior vena cava is normal sized,respiratory size variation greater than 50%. No left to right shunting wasdetected by limited color flow Doppler interrogation of the interatrialseptum. MEASUREMENTS AND CALCULATIONS 2-D Measurements and LV Function: LVID (d) 4.0 cm Planimetered EF 62 % LVID (s) 2.6 cm LV FS% (2D) 35 % IVS (d) 1.0 cm LVOT diameter 2.5 cm LVPW (d) 1.0 cm HR 92 bpm Ao Sinus 4.2 cm LA Vol index 22 ml/m2 Asc Ao 4.0 cm RA Vol index 16 ml/m2 LA 3.6 cm RA area 16 cm RV Max 4C (d) 3.1 cm Diastology: Mitral Tissue Doppler E Peak 0.7 m/s e', Septum 0.06 m/s A Peak 1.0 m/s e', Lateral 0.06 m/s E/A 0.7 E/e' Average 11.31 DT 157 msec Aortic Valve: Vmax 1.2 m/s SUSAN (V) 4.04 cm VTI 0.28 m SUSAN (I) 3.67 cm LVOT V max 1.0 m/s Max PG 6 mmHg LVOT VTI 0.21 m Mean PG 4 mmHg SV 103 ml Dim Index 0.76 SV index 47 ml/m CO 9.5 l/min CI 4.3 l/min/m Mitral Valve: MVA 4.8 cm MV P 1/2 46 msec Tricuspid Valve and estimated PA pressures: TAPSE 2.8 cm . This study was interpreted by an [facility] accredited facility. Final Jay Brown DO ECHO ORD Final Result * SD SHAUN POST-VOIDING RESIDUAL URINE&/BLADDER CAP (10/20/2024 12:00 AM ORDER PICKER) Michelle Alvarez PA PB - URINARY SYSTEM SERVI JOSELITO Final Result * XR SPINE LUMBAR 3 VIEWS (10/07/2024 11:17 AM ORDER PICKER) Anatomical Region Laterality Modality LUMBAR SPINE Computed Radiogr aphy 10/07/2024 3:44 PM ORDER PICKER Impressions 10/07/2024 3:44 PM ORDER PICKER No acute fracture or acute malalignment of the lumbar spine. Mild hypertrophic spurring of the lower thoracic and lumbar spine with lower lumbar degenerative facet arthropathy. Dictated by Julio Sousa MD @ 10/07/2024 3:44:35 PM (Electronically Signed) Narrative 10/07/2024 3:44 PM ORDER PICKER For Patients: As a result of the Century Cures Act, medical imaging exams and procedure reports are released immediately into your electronic medical record. You may view this report before your referring provider. If you have questions, please contact your health care provider. INDICATION: Lumbar spine pain. Weakness of both legs. TECHNIQUE: Three views of the lumbar spine. COMPARISON: None. FINDINGS: Five lumbar vertebral bodies normally aligned without fractures. There is mild hypertrophic spurring of the lower thoracic and lumbar spine. The disc interspaces are fairly well preserved. There is mild degenerative facet arthropathy of the lower lumbar spine at L4-5 and L5-S1. The included sacroiliac joints are unremarkable. Surgical clips right upper quadrant. Procedure Note Julio Sousa MD - 10/07/2024 For Patients: As a result of the Cures Act, medical imagingexams and procedure reports are released immediately into your electronicmedical record. You may view this report before your referring provider.If you have questions, please contact your health care provider. INDICATION: Lumbar spine pain. Weakness of both legs. TECHNIQUE: Three views of the lumbar spine. COMPARISON: None. FINDINGS: Five lumbar vertebral bodies normally aligned without fractures. There ismild hypertrophic spurring of the lower thoracic and lumbar spine. Thedisc interspaces are fairly well preserved. There is mild degenerativefacet arthropathy of the lower lumbar spine at L4-5 and L5-S1. Theincluded sacroiliac joints are unremarkable. Surgical clips right upperquadrant. IMPRESSION: No acute fracture or acute malalignment of the lumbar spine. Mild hypertrophic spurring of the lower thoracic and lumbar spine withlower lumbar degenerative facet arthropathy. Dictated by Julio Sousa MD @ 10/07/2024 3:44:35 PM (Electronically Signed) us Adei Stephanie DO GENERAL IMAGING Final Result * XR CHEST 2 VIEWS PA AND LATERAL (10/07/2024 11:17 AM ORDER PICKER) Anatomical Region Laterality Modality CHEST, THORAX, Lung, HEART Compu julissa Radiography 10/07/2024 3:39 PM ORDER PICKER Impressions 10/07/2024 3:39 PM ORDER PICKER No acute cardiopulmonary process identified. Dictated by Julio Sousa MD @ 10/07/2024 3:39:25 PM (Electronically Signed) Narrative 10/07/2024 3:39 PM ORDER PICKER For Patients: As a result of the Cures Act, medical imaging exams and procedure reports are released immediately into your electronic medical record. You may view this report before your referring provider. If you have questions, please contact your health care provider. INDICATION: Acute non recurrent frontal sinusitis. TECHNIQUE: PA and lateral chest x-ray. COMPARISON: None. FINDINGS: Clear lungs. Normal heart size and pulmonary vascularity. Mild degenerative change of the AC joints. Procedure Note Julio Sousa MD - 10/07/2024 For Patients: As a result of the Cures Act, medical imagingexams and procedure reports are released immediately into your electronicmedical record. You may view this report before your referring provider.If you have questions, please contact your health care provider. INDICATION: Acute non recurrent frontal sinusitis. TECHNIQUE: PA and lateral chest x-ray. COMPARISON: None. FINDINGS: Clear lungs. Normal heart size and pulmonary vascularity. Mild degenerative change of the AC joints. IMPRESSION: No acute cardiopulmonary process identified. Dictated by Julio Sousa MD @ 10/07/2024 3:39:25 PM (Electronically Signed) Adealcon Brown DO GENERAL IMAGING Final Result * (ABNORMAL) PSA TOTAL (DIAG OR SCREEN) (10/07/2024 10:49 AM ORDER PICKER) PSA, TOTAL 4.17(H) < OR = 4.00 ng/mL [facility] Comment: The total PSA value from this assay system is standardized against the WHO standard. The test result will be approximately 20% lower when compared to the equimolar-standardized total PSA ([place]). Comparison of serial PSA results should be interpreted with this fact in mind. This test was performed using the Siemens chemiluminescent method. Values obtained from different assay methods cannot be used interchangeably. PSA levels, regardless of value, should not be interpreted as absolute evidence of the presence or absence of disease. Blood BLOOD SPECIMEN / Unknown 10/07/2024 10:49 AM ORDER PICKER 10/07/2024 10:49 AM ORDER PICKER Adealcon Brown DO CHEMISTRY Final Result [facility] [address] [place] [address], [facility] [address] [place] [address] * (ABNORMAL) BASIC METABOLIC PANEL (10/07/2024 10:49 AM ORDER PICKER) GLUCOSE 239(H) 65 - 99 mg/dL [facility] Velardee Comment: Fasting reference interval For someone without known diabetes, a glucose value >125 mg/dL indicates that they may have diabetes and this should be confirmed with a follow-up test. UREA NITROGEN (BUN) 19 7 - 25 mg/dL [facility] CREATININE 0.84 0.70 - 1.35 mg/dL [facility] EGFR 96 > OR = 60 mL/min/1. 73m2 [facility] BUN/CREATININE RATIO SEE NOTE: 6 - 22 (calc) [facility] Comment: Not Reported: BUN and Creatinine are within reference range. SODIUM 137 135 - 146 mmol/L [facility] POTASSIUM 5.0 3.5 - 5.3 mmol/L [facility] CHLORIDE 103 98 - 110 mmol/L [facility] CARBON DIOXIDE 28 20 - 32 mmol/L [facility] ELECTROLYTE BALANCE 6(L) 7 - 17 mmol/L (calc) [facility] CALCIUM 9.2 8.6 - 10.3 mg/dL [facility] Blood BLOOD SPECIMEN / Unknown 10/07/2024 10:49 AM ORDER PICKER 10/07/2024 10:49 AM ORDER PICKER Jay Brown DO CHEMISTRY Final Result [facility] [address] [place] [address], [facility] [address] [place] [address] * (ABNORMAL) HEMOGLOBIN A1C MONITORING (POCT) (10/07/2024 10:48 AM ORDER PICKER) POC HEMOGLOBIN A1C 8.6(H) <6.0 % OF TOTAL HGB [facility] Comment: Any point of care results exhibiting inconsistency with the patient's clinical status should be repeated using a different testing method. Blood BLOOD SPECIMEN / Unknown 10/07/2024 10:48 AM ORDER PICKER 10/07/2024 10:48 AM ORDER PICKER Jay Bellaleks CHEMISTRY Final Result [facility] [address] [place] [address], [facility] [address] [place] [address] * (ABNORMAL) LIPID PANEL W REFLEX MEASURED LDL (05/07/2024 10:55 AM CDT) CHOLESTEROL,TOTAL 146 100 - 199 mg/dL 05/08/2024 2:10 AM CDT [facility] Comment: Cholesterol, Total Reference Ranges Desirable <200 mg/dL Borderline 200-239 mg/dL High >=240 mg/dL TRIGLYCERIDES 189(H) <150 mg/dL 05/08/2024 2:10 AM CDT [facility] HDL CHOLESTEROL 41 >40 mg/dL 2:10 AM CDT [facility] NON-HDL CHOLESTEROL 105 <145 mg/dl 05/08/2024 2:10 AM CDT [facility] CHOL/HDL RATIO 3.56 <4.50 05/08/2024 2:10 AM CDT [facility] LDL CHOLESTEROL 67 <=130 mg/dL 05/08/2024 2:10 AM CDT [facility] VLDL CHOLESTEROL 38(H) <=30 mg/dL 05/08/2024 2:10 AM CDT [facility] PROVIDER ORDERED STATUS RANDOM 05/08/2024 2:10 AM CDT [facility] Blood BLOOD SPECIMEN / Unknown Venipuncture / Unknown 05/07/2024 10:55 AM CDT 05/07/2024 11:04 AM CDT us Jay Brown DO CHEMISTRY Final Result [facility] [address] [place] [address], * ANTI HCV (09/26/2021 10:56 AM ORDER PICKER) HEPATITIS C ANTIBODY Non-React will Non-React will 09/26/2021 6:22 PM ORDER PICKER [facility] Comment:Antibodies to HCV no t detected; does not exclude the possibility of exposure to HCV. Blood BLOOD SPECIMEN / Unknown Venipuncture / Unknown 09/26/2021 10:56 AM ORDER PICKER 09/26/2021 10:56 AM ORDER PICKER us Ramin Dubon MD SEND OUTS Final Result Performing Organization Address City/[facility]/ZIP Co de Phone Number [facility] 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
[2024-11-08 16:44] LABS: Glucose, Point-of-Care* 242 mg/dl (60-115)
[2024-11-08 16:55] VITALS: BP 115/77; PULSE 103; RESP 22; TEMP 36.5; O2SAT 98; BMI 36.9
[2024-11-08 17:22] LABS: Glucose, Point-of-Care* 202 mg/dl (60-115)
--- NOTE | 2024-11-08 17:35 | ED_ITS ---
HPI - Overdose General Time Seen by Provider: 17:35 Date Seen: 11/08/24 Chief Complaint: Overdose Stated Complaint: Took 6x insulin amount Time Seen by Provider: 11/08/24 17:28 Source: patient, family and RN notes reviewed Mode of arrival: ambulatory Limitations: no limitations History of Present Illness HPI Narrative: Bob is a very pleasant 69-year-old gentleman with history of diabetes who comes to the emergency room after inadvertently injecting himself with 60 units of his fast acting insulin tonight. Patient noted to have elevated blood sugar and and uncertain monitor reading. States he is only had is monitor calibrated once. Monitor stated that he was over 300 with his blood sugar but when he did an Accu-Chek it was over 400. He went to give himself insulin 10 units for but inadvertently gave himself 60 units. He has been feeling well since that time. His blood sugar on the monitors would now 192 but we did do it when he initially arrived and it was 242. He has not eaten supper at this time. He has otherwise been well. Related Data Home Medications ?Medication ?Instructions ?Recorded ?Confirmed albuterol sulfate 90 mcg/actuation 2 inh inhalation Q4H PRN 06/29/22 06/29/22 aerosol inhaler (Ventolin HFA) amlodipine 5 mg tablet 5 mg PO DAILY 06/29/22 06/29/22 aspirin 81 mg capsule 81 mg PO HS 06/29/22 06/29/22 atorvastatin 10 mg tablet 10 mg PO HS 06/29/22 06/29/22 bupropion HCl 300 mg 24 hr tablet, 300 mg PO DAILY 06/29/22 06/29/22 extended release escitalopram oxalate 10 mg tablet 10 mg PO DAILY 06/29/22 06/29/22 fluticasone propionate 50 2 spray intranasal DAILY PRN 06/29/22 06/29/22 mcg/actuation nasal spray,suspension (24 Hour Allergy Relief) hydrochlorothiazide 50 mg tablet 50 mg PO DAILY 06/29/22 06/29/22 insulin glargine U-300 conc 300 160 unit subcut DAILY 06/29/22 06/29/22 unit/mL (3 mL) subcutaneous pen (Toujeo Max U-300 SoloStar) insulin lispro 100 unit/mL 20 - 30 unit subcut TIDWMEAL 06/29/22 06/29/22 subcutaneous pen loratadine-pseudoephedrine ER 10 1 tab PO HS 06/29/22 06/29/22 mg-240 mg tablet,extended [id number] (Allergy Relief D-24hr) losartan 100 mg tablet 100 mg PO DAILY 06/29/22 06/29/22 metformin 1,000 mg tablet 1,000 mg PO BID 06/29/22 06/29/22 methylphenidate HCl 10 mg tablet 10 mg PO DAILY PRN 06/29/22 06/29/22 methylphenidate HCl 36 mg 36 mg PO DAILY 06/29/22 06/29/22 tablet,extended release 24 hr (Concerta) pantoprazole 20 mg tablet,delayed 20 mg PO DAILY 06/29/22 06/29/22 release semaglutide 0.25 mg or 0.5 mg (2 0.5 mg subcut MO@09 06/29/22 06/29/22 mg/1.5 mL) subcutaneous pen injector (Ozempic) Previous Rx's ?Medication ?Instructions ?Recorded amoxicillin 875 mg-potassium 875 mg (0.875 x 875-125 mg) PO 07/01/22 clavulanate 125 mg tablet BIDWM #14 tabs Allergies Allergy/AdvReac Type Severity Reaction Status Date / Time No Known Drug Allergies Allergy Verified 11/08/24 16:07 Review of Systems Status of ROS: Reports: 10 or more systems reviewed and unremarkable except as noted in History and below [facility] Medical History Need for tetanus booster ?Z23 - Encounter for immunization (ICD-10) History of histoplasmosis ?Z86.19 - Personal history of other infectious and parasitic diseases (ICD- 10) Hearing loss ?H91.90 - Unspecified hearing loss, unspecified ear (ICD-10) Essential hypertension ?I10 - Essential (primary) hypertension (ICD-10) Asthma ?J45.909 - Unspecified asthma, uncomplicated (ICD-10) Gastroesophageal reflux disease ?K21.9 - Gastro-esophageal reflux disease without esophagitis (ICD-10) Ascending aorta enlargement ?I77.89 - Other specified disorders of arteries and arterioles (ICD-10) Sepsis ?A41.9 - Sepsis, unspecified organism (ICD-10) Severe obesity (BMI >= 40) ?E66.01 - Morbid (severe) obesity due to excess calories (ICD-10) Diabetes mellitus type 2 in obese ?E11.69 - Type 2 diabetes mellitus with other specified complication (ICD-10) ?E66.9 - Obesity, unspecified (ICD-10) Surgical History Status post colonoscopy ?Z98.890 - Other specified postprocedural states (ICD-10) Status post vasectomy ?Z98.52 - Vasectomy status (ICD-10) Status post cholecystectomy ?Z90.49 - Acquired absence of other specified parts of digestive tract (ICD- 10) Status post hernia repair ?Z98.890 - Other specified postprocedural states (ICD-10) ?Z87.19 - Personal history of other diseases of the digestive system (ICD-10) Social History Smoking Status: Never smoker Do you use any of these nicotine containing products: None Second hand tobacco smoke exposure: No How often do you have a drink containing alcohol: 2-4 times a month How many standard drinks containing alcohol do you have on a typical day: 1 or 2 How often do you have six or more drinks on one occasion: Never AUDIT-C Alcohol total score: 2 Non-prescribed substance use: denies use Caffeine: Yes (1 Monster Drink/day) Exam Narrative: Exam Narrative: Bob is alert and oriented. Nontoxic. Eyes are clear. Heart with regular rate and rhythm lungs are clear. Abdomen soft. Moving all extremities. Const: Vital Signs, click to edit/add: Vital Signs - 24 hr 11/08/24 16:55 11/08/24 19:31 Temperature 97.7 F Pulse Rate [Pulse Oximeter] 103 H 96 Respiratory Rate 22 16 Blood Pressure [Ri ght Upper Arm] 115/77 162/104 H Pulse Oximetry 98 98 Oxygen Delivery Me thod Room Air Documenting provider has reviewed patient's vital signs: yes Course Course ED Course: At this time poison Control has been contacted. They are recommending Q 30 minute blood sugar checks until 1930 hours. We will order Dawit supper so that he is eating. Will place an IV and have dextrose standing by just in case we need to correct hypoglycemic episode. Have also checked a basic panel for electrolytes. Patient is in agreement with our plan. Vital Signs Vital signs: Initial Vital Signs Temperature 97.7 F 11/08/24 16:55 Temperature Source Temporal Artery Scan 11/08/24 16:55 Pulse Rate 103 H 11/08/24 16:55 Respiratory Rate 22 11/08/24 16:55 Blood Pressure 115/77 11/08/24 16:55 Blood Pressure Mean 89 11/08/24 16:55 Pulse Oximetry 98 11/08/24 16:55 Vital Signs Temperature 97.7 F 11/08/24 16:55 Pulse Rate 103 H 11/08/24 16:55 Respiratory Rate 22 11/08/24 16:55 Blood Pressure 115/77 11/08/24 16:55 Pulse Oximetry 98 11/08/24 16:55 Temperature 97.7 F 11/08/24 16:55 Pulse Rate 96 11/08/24 19:31 Respiratory Rate 16 11/08/24 19:31 Blood Pressure 162/104 H 11/08/24 19:31 Pulse Oximetry 98 11/08/24 19:31 Oxygen Delivery Method Room Air 11/08/24 19:31 MDM - Overdose MDM Narrative Medical decision making narrative: 1. Insulin overdose-patient noted to have decreasing glucose checks and we did level out at 0150 2 times to 1/2 hour apart. Per poison Control we were instructed to check blood sugars every 30 minutes ending at 1930 hours. Immediately prior to departure patient noted to have a blood sugar of 129 on his monitor. A bedside glucometer was 175. He is now having a hard time logging into his glucometer and thus we do think this is a malfunction. He has the ability to check blood sugars at home with his glucometer and this is what I would like him to do. I would ask him to check every 1/2 hour until 2200 hours. I would have him reduce his normal long-acting insulin from 160-120 units. He is in agreement with this. Would ask that he have orange juice or something by the side of his bed tonight if he runs low. However, the fast acting insulin should have peaked by now and in reality we should not have any problems with hypoglycemia overnight. Further, he has had a meal here tonight. 2. Hyper glycemia-patient noted to have a blood sugar of 400 earlier today. He had bread and jam today as well as some ice cream last night. He denies any fever chills cough congestion illness urinary tract infection. A basic panel shows normal bicarb and potassium. 2. Disposition-home at this time. Return/seek medical attention for worsening symptoms. He departs with his who will be with him overnight. Medical Records Attestation: I reviewed the patient's medical records. Lab Data Attestation: I reviewed the patient's lab results. Labs: Lab Results 11/08/24 11/08/24 11/08/24 Range/Units 16:43 17:16 17:55 Sodium 134 L (135-149) mmol/L Potassium 4.1 (3.6-5.1) mmol/L Chloride 101 (96-114) mmol/L Carbon Dioxide 26 (20-32) mmol/L Anion Gap 7 (7-15) mEq/L BUN 22 (7-30) mg/dL Creatinine 0.7 (0.5-1.5) mg/dL Estimated Creat Clear 69.35 Estimated GFR 101 ml/min Glucose 180 H (60-115) mg/dL Calcium 9.4 (8.4-10.6) mg/dL POC Glucose 242 H 202 H (60-115) mg/dl 11/08/24 11/08/24 11/08/24 Range/Units 18:04 18:23 18:51 Sodium (135-149) mmol/L Potassium (3.6-5.1) mmol/L Chloride (96-114) mmol/L Carbon Dioxide (20-32) mmol/L Anion Gap (7-15) mEq/L BUN (7-30) mg/dL Creatinine (0.5-1.5) mg/dL Estimated Creat Clear Estimated GFR ml/min Glucose (60-115) mg/dL Calcium (8.4-10.6) mg/dL POC Glucose 187 H 179 H 152 H (60-115) mg/dl 11/08/24 11/08/24 Range/Units 19:25 19:46 Sodium (135-149) mmol/L Potassium (3.6-5.1) mmol/L Chloride (96-114) mmol/L Carbon Dioxide (20-32) mmol/L Anion Gap (7-15) mEq/L BUN (7-30) mg/dL Creatinine (0.5-1.5) mg/dL Estimated Creat Clear Estimated GFR ml/min Glucose (60-115) mg/dL Calcium (8.4-10.6) mg/dL POC Glucose 152 H 175 H (60-115) mg/dl Critical Care Time Critical Care Time Critical Care Time: Yes Attestation: The patient required my highest level preparedness to intervene emergently and I personally spent this critical care time directly and personally managing the patient. This critical care time included: Obtaining a history; Examining the patient; Pulse oximetry; Ordering and reviewing of studies; Arranging urgent treatment with development of a management plan; Evaluation of patients response to treatment; Frequent reassessment discussions with other providers. This critical care time was performed to assess and manage the high probability of imminent life-threatening deterioration that could result in multiorgan failure. It was exclusive of separate billable procedures and treating other patients and teaching time. Total Critical Care Time in Minutes: 60 Discharge Plan Discharge Clinical Impression: Insulin overdose Patient Disposition: Home, Self-Care Condition: Improved Additional Instructions: Please monitor your blood sugar with your glucometer as well as your G monitor. It would be okay if you allow blood sugar to be a little higher overnight. Return as needed for worsening symptoms. Prescriptions: No Action albuterol sulfate [Ventolin HFA] 90 mcg/actuation HFA aerosol inhaler 2 inh INHALATION Q4H PRN Patient Comments: INHALE 2 PUFFS BY MOUTH EVERY FOUR HOURS IF NEEDED FOR WHEEZING 2ND CHOICE. amlodipine 5 mg tablet 5 mg PO DAILY Patient Comments: TAKE 1 TABLET (5 MG) BY MOUTH ONCE DAILY. atorvastatin 10 mg tablet 10 mg PO HS Patient Comments: TAKE 1 TABLET (10 MG) BY MOUTH ONCE DAILY WITH EVENING MEAL. bupropion HCl 300 mg tablet extended release 24 hr 300 mg PO DAILY Patient Comments: TAKE 1 TABLET (300 MG) BY MOUTH EVERY MORNING. escitalopram oxalate 10 mg tablet 10 mg PO DAILY Patient Comments: TAKE 1 TABLET (10 MG) BY MOUTH EVERY MORNING. hydrochlorothiazide 50 mg tablet 50 mg PO DAILY Patient Comments: TAKE 1 TABLET (50 MG) BY MOUTH ONCE DAILY. Toujeo Max U-300 SoloStar 300 unit/mL (3 mL) insulin pen 160 unit SUBCUT DAILY Patient Comments: INJECT 160 UNITS SUBCUTANEOUS ONCE DAILY IN THE EVENING. insulin lispro 100 unit/mL insulin pen 20 - 30 unit SUBCUT TIDWMEAL Patient Comments: INJECT 20-30 UNITS SUBCUTANEOUSLY THREE TIMES DAILY BEFORE MEALS. losartan 100 mg tablet 100 mg PO DAILY Patient Comments: TAKE 1 TABLET (100 MG) BY MOUTH ONCE DAILY. metformin 1,000 mg tablet 1,000 mg PO BID Patient Comments: TAKE ONE TABLET BY MOUTH TWICE A DAY methylphenidate HCl 10 mg tablet 10 mg PO DAILY PRN Patient Comments: TAKE ONE TABLET BY MOUTH IN THE AFTERNOON NEEDED FOR ADHD SYMPTOMS methylphenidate HCl [Concerta] 36 mg tablet extended release 24hr 36 mg PO DAILY Patient Comments: TAKE 1 TABLET (36 MG) BY MOUTH ONCE DAILY. pantoprazole 20 mg tablet,delayed release (DR/EC) 20 mg PO DAILY Patient Comments: TAKE 1 TABLET (20 MG) BY MOUTH ONCE DAILY. Ozempic 0.25 mg or 0.5 mg(2 mg/1.5 mL) pen injector 0.5 mg SUBCUT MO@09 Patient Comments: INJECT 0.5MG SUBCUTANEOUSLY ONCE WEEKLY aspirin 81 mg capsule 81 mg PO HS Allergy Relief D-24hr 10-240 mg tablet extended release 24 hr 1 tab PO HS fluticasone propionate [24 Hour Allergy Relief] 50 mcg/actuation spray,suspension 2 spray intranasal DAILY PRN Rx Instructions: administer into each nostril amoxicillin-pot clavulanate 875-125 mg Tablet 875 mg PO BIDWM Qty: 14 0RF Follow Up/Referrals: Ramin Dubon MD [Staff Physician] - Stand Alone Forms: [employer] Info Instructions
--- OUTSIDE RECORDS SUMMARY | 2024-11-08 17:44 | XMS_ITS | Clinical Summary ---
Author Organization [facility] [facility] Address [address] [place] [id number] Care Team Providers Care Vp Product Marketing Name Role Phone Hitesh Mariah A RD Unavailable [phone] Jay Brown DO Primary Care Provider [phone] Michelle Alvarez Unavailable [phone] Allergies Active Allergy Reactions Criticality Noted Date [...] 2 diabetes mellitus without complication, unspecified whether custodial insulin use (HC) Dispense item covered by pt ins. E11.65 NIDDM type II, uncontrolled - Test 3 times/day, Reason: High A1C 100 Each 5 06/19/20 18 Active ACCU-CHEK FASTCLIX LANCET DRUMIndications:C ontrolled type 2 diabetes mellitus without complication, unspecified whether custodial insulin use (HC) TEST THREE TIMES DAILY 300 Each 3 07/17/20 19 Active blood sugar diagnostic (Accu-Chek Guide test strips) stripIndications: Controlled type 2 diabetes mellitus without complication, unspecified whether terminal gauger insulin use (HC) Dispense item covered by pt ins. E11.9 IDDM type II - Test 3 times/day.TEST THREE TIMES DAILY. High A1C. 300 Strip 3 04/01/20 21 Active medication order composerIndicatio ns:Type 2 diabetes mellitus without complication, with long-term current use of insulin (HC) Dexcom 6 display device 1 Device 05/30/20 22 Active Dexcom G6 Glass Beveler for continuous blood glucose monitor (CGM) USE [...] 90 Tablet 3 03/20/20 23 Active Insulin [place], Disposable, (Gloria Pen Needle) 32 gauge x [...] daily. 54 mL 10/07/19 25 Active transmitter ([employer] G6 Transmitter) for continuous blood glucose monitor (CGM)Indications: Type 2 diabetes mellitus without complication, with long-term current use of insulin (HC) To be used to read blood sugars, follow engineering designer directions. 1 Each 10/07/19 Active sensor (Dexcom G6 Sensor) for continuous blood glucose monitor (CGM)Indications: Type 2 diabetes mellitus without complication, with long-term current use of insulin (HC) To be used to read blood sugars, follow engineering designer directions. 9 Each 10/07/19 Active insulin lispro, [...] Overview (01/16/2018): 01/16/18 signed .Bette Gordillo DNP, ARCHEOLOGY FACULTY MEMBER, FRONT END DRUPAL DEVELOPER/psychiatry Anxiety 10/31/2017 11/09/2020 Controlled substance agreement signed [...] Department Care Team Description 11/08/2024 Nurse Triage [facility] [address] [place] [address] Jay Brown DO High Blood Sugar 11/02/2024 11:44 AM FIELD APPRAISER - 11/02/2024 11:59 PM FIELD APPRAISER Hospital Encounter [address] [address] Jay Brown DO Ming, Lin, WELDER APPRENTICE GAS 11/02/2024 Travel 10/26/2024 11:53 AM FIELD APPRAISER - 10/26/2024 11:59 PM FIELD APPRAISER Hospital Encounter [address] [address] Jay Brown DO Ming, Lin, WELDER APPRENTICE GAS 10/26/2024 Travel 10/21/2024 Telephone [facility] [address] [place] [address] Jay Brown DO Results 10/20/2024 12:30 PM FIELD APPRAISER Office Visit [facility] [address] [place] [address] Michelle Alvarez PA Consult (Z80.42 (ICD-10-CM) - Family history of prostate cancer/R97.20 (ICD-10-CM) - Elevated PSA//) 10/20/2024 11:00 AM FIELD APPRAISER Ancillary Procedure [facility] [address] [place] [address] 10/20/2024 10:15 AM FIELD APPRAISER Office Visit [facility] [address] [facility] [place] [address] Lise Prater MD Medication Management 10/20/2024 8:45 AM FIELD APPRAISER - 10/20/2024 11:59 PM FIELD APPRAISER Hospital Encounter [address] [address] Jay Brown DO Noble, Isaac J, PT Lumbar spine pain; Weakness of both legs 10/20/2024 Travel 10/19/2024 Telephone [facility] [address] [place] [address] Jay Brown DO Prior Authorization (transmitter ([employer] G6 Transmitter) for continuous blood glucose monitor (CGM )DME PART B)) 10/07/2024 11:15 AM FIELD APPRAISER Ancillary Procedure [facility] [address] [place] [address] 10/07/2024 11:00 AM FIELD APPRAISER Ancillary Procedure [facility] [address] [place] [address] 10/07/2024 9:45 AM FIELD APPRAISER Office Visit [facility] [address] [place] [address] Jay Brown DO Diabetes (6 months ); Medication Management (Insulin coverage ); Back Pain (Lower back pain x 6 months having hard time walking /) 10/07/2024 Telephone [facility] [address] [place] [address] Shaqra, Adei, DO Medication Management 10/07/2024 Travel 09/25/2024 Refill [facility] [address] [facility] [place] [address] Lise Prater MD Refill Request (Escitalopram Oxalate) 09/07/2024 Refill [facility] [address] [facility] [place] [address] Jay Brown, Refill Request (Cetirizine) 09/07/2024 Refill [facility] [address] [facility] [place] [address] Jay Brown, DO Refill Request (Insulin Lispro (U-100), Atorvastatin, Losartan) from Last 3 Months Immunizations Name Administration Dates Next Due COVID-19 vaccine (Moderna 100mcg/0.5mL) PF, MDV 12/07/2020,11/08/2020 COVID-19 vaccine (iAmplify-Bio NTech 30mcg/0.3mL) 12YO+ BIVALENT PF, MDV 03/20/2023,07/19/2022 COVID-19 vaccine (Pfizer-Bio NTech 30mcg/0.3mL) 12YO+ JOHNNIE-SUCROSE PF, MDV 12/26/2021 COVID-19 vaccine (iAmplify-Bio NTech 30mcg/0.3mL) PF, MDV 08/22/2021 Influenza A [...] Sex Assigned at Male 10/02/2021 7:53 PM FIELD APPRAISER Legal Sex Male 6:16 AM FIELD APPRAISER Gender Identity Male 10/02/2021 7:53 PM FIELD APPRAISER Sexual Orientation Straight 10/02/2021 7: 53 PM FIELD APPRAISER Travel History Travel Start Travel End [place] 10/16/2024 10/19/2024 Obstetrics History Last Filed Vital Signs Vital Sign Reading Time Taken Comments Blood Pressure 138/92 10/20/2024 12:43 PM FIELD APPRAISER Pulse 84 10/20/2024 12:43 PM FIELD APPRAISER Temperature 36.8 C (98.2 F) 07/16/2023 8:38 AM CDT Respiratory Rate 20 07/23/2023 8:12 AM FIELD APPRAISER Oxygen Saturation 99% 10/07/2024 10:00 AM FIELD APPRAISER Inhaled Oxygen Concentration - - Weight 108.6 kg (239 lb 8 oz) 10/20/2024 12:43 P M FIELD APPRAISER Height 172.4 cm (5' 7.87) 01/27/2024 9:30 AM CD T Body Mass Index 36.56 01/27/2024 9:30 AM CDT Plan of Treatment Upcoming Encounters Date Type Department Care Team (Late st Contact Info) Description 11/09/2024 1:00 PM FIELD APPRAISER Appointment [facility] [address] [place] [address] Danny Benavides, PT [address] [place] [address] 11/16/2024 1:00 PM FIELD APPRAISER Appointment [facility] [address] [place] [address] Danny Benavides, PT [address] [place] [address] 11/16/2024 2:30 PM FIELD APPRAISER Orders Only [facility] [address] [place] [address] Lab, [facility] 11/16/2024 3:15 PM FIELD APPRAISER Appointment [facility] [address] [place] [address] 01/05/2025 10:35 AM CDT Office Visit [facility] [address] [place] [address] Jay Brown DO [address] [facility] [address] 01/17/2025 1:45 PM CDT Office Visit [facility] [address] [place] [address] Lise Prater MD [address] [place] [address] Health Maintenance Due Date Last Done Comments [...] COMPLETE WO CONTRAST Routine 10/20/2024 11:34 AM FIELD APPRAISER Ascending aorta dilation CA SHAUN POST-VOIDING RESIDUAL URINE&/BLADDER CAP Routine 10/20/2024 12:00 AM FIELD APPRAISER Elevated PSA Lower urinary tract symptoms (LUTS) XR SPINE LUMBAR 3 VIEWS Routine 10/07/2024 11:17 AM FIELD APPRAISER Lumbar spine pain Weakness of both legs XR CHEST 2 VIEWS PA AND LATERAL Routine 10/07/2024 11:17 AM FIELD APPRAISER Acute non-recurrent frontal sinusitis BASIC METABOLIC PANEL Routine 10/07/2024 10:49 AM FIELD APPRAISER Type 2 diabetes mellitus with obesity (HC) PSA TOTAL Routine 10/07/2024 10:49 AM FIELD APPRAISER Family history of prostate cancer Frequency of micturition HEMOGLOBIN A1C MONITORING (POCT) Routine 10/07/2024 10:48 AM FIELD APPRAISER Type 2 diabetes mellitus without complication, with long-term current use of insulin (HC) LIPID PANEL W REFLEX MEASURED LDL Routine 05/07/2024 10:55 AM CDT Type 2 diabetes mellitus with hyperglycemia, with long-term current use of insulin (HC) ANTI HCV Routine 09/26/2021 10:56 AM FIELD APPRAISER Need for hepatitis C screening test COLONOSCOPY SCREENING Routine 08/17/2020 10:42 AM FIELD APPRAISER History of colon polyps from Last 3 Months or Most Recently Relevant to Health Maintenance Results * ECHO TTE COMPLETE WO CONTRAST (10/20/2024 11:34 AM FIELD APPRAISER) AORTIC VALVE MEAN PG 4 mmHg EJECTION FRACTION 62 % LVEDD 4.0 cm Anatomical Region Laterality Modality Ultrasound 10/20/2024 11:0 2 AM FIELD APPRAISER Narrative 10/20/2024 12:22 PM FIELD APPRAISER ECHOCARDIOGRAM JULIÁN REED : 1955 69 years Study Date: 10/20/2024 11:02:47 AM Gender: M BP: 167/88 mmHg Height: 170.00 cm BSA: 2.18 m Weight: 109.00 kg Tech: JACK Referring MD: JAY BROWN Site: [facility] Reading Location: Mobile-OP Patient Location: Outpatient. Procedure: [...] aortic dilation f/u recommendations, please refer to [email or web address]. Comparison Compared to prior exam [...] . This study was interpreted by an [facility] accredited facility. Final Procedure Note Sai Antunez MD - 10/20/2024 ECHOCARDIOGRAM JULIÁN REED : 1955 69 years Study Date: 10/20/2024 11:02:47 AM Gender: M BP: 167/88 mmHg Height: 170.00 cm BSA: 2.18 m Weight: 109.00 kg Tech: JACK Referring MD: JAY BROWN Site: [facility] Reading Location: Mobile-OP Patient Location: Outpatient. Procedure: [...] . This study was interpreted by an [facility] accredited facility. Final Jay Brown DO ECHO ORD Final Result * CA SHAUN POST-VOIDING RESIDUAL URINE&/BLADDER CAP (10/20/2024 12:00 AM FIELD APPRAISER) Michelle Alvarez PA PB - URINARY SYSTEM SERVI JOSELITO Final Result * XR SPINE LUMBAR 3 VIEWS (10/07/2024 11:17 AM FIELD APPRAISER) Anatomical Region Laterality Modality LUMBAR SPINE Computed Radiogr aphy 10/07/2024 3:44 PM FIELD APPRAISER Impressions 10/07/2024 3:44 PM FIELD APPRAISER No acute fracture or acute malalignment of the lumbar spine. Mild hypertrophic spurring of the lower thoracic and lumbar spine with lower lumbar degenerative facet arthropathy. Dictated by Julio Sousa MD @ 10/07/2024 3:44:35 PM (Electronically Signed) Narrative 10/07/2024 3:44 PM FIELD APPRAISER For Patients: As a result of the [...] VIEWS PA AND LATERAL (10/07/2024 11:17 AM FIELD APPRAISER) Anatomical Region Laterality Modality CHEST, THORAX, Lung, HEART Compu julissa Radiography 10/07/2024 3:39 PM FIELD APPRAISER Impressions 10/07/2024 3:39 PM FIELD APPRAISER No acute cardiopulmonary process identified. Dictated by Julio Sousa MD @ 10/07/2024 3:39:25 PM (Electronically Signed) Narrative 10/07/2024 3:39 PM FIELD APPRAISER For Patients: As a result of the [...] TOTAL (DIAG OR SCREEN) (10/07/2024 10:49 AM FIELD APPRAISER) PSA, TOTAL 4.17(H) < OR = 4.00 ng/mL [employer] Comment: The total PSA value from this assay system is standardized against the WHO standard. The test result will be approximately 20% lower when compared to the equimolar-standardized total PSA ([facility] [place]). Comparison of serial PSA results should be interpreted with this fact in mind. This test was performed using the Siemens chemiluminescent method. Values obtained from different assay methods cannot be used interchangeably. PSA levels, regardless of value, should not be interpreted as absolute evidence of the presence or absence of disease. Blood BLOOD SPECIMEN / Unknown 10/07/2024 10:49 AM FIELD APPRAISER 10/07/2024 10:49 AM FIELD APPRAISER Adealcon Brown DO CHEMISTRY Final Result [employer] [facility] [address] [place] [address], [facility] [address] [place] [address] * (ABNORMAL) BASIC METABOLIC PANEL (10/07/2024 10:49 AM FIELD APPRAISER) GLUCOSE 239(H) 65 - 99 mg/dL [employer] [facility] Comment: Fasting reference interval For someone without known diabetes, a glucose value >125 mg/dL indicates that they may have diabetes and this should be confirmed with a follow-up test. UREA NITROGEN (BUN) 19 7 - 25 mg/dL [facility] CREATININE 0.84 0.70 - 1.35 mg/dL [facility] EGFR 96 > OR = 60 mL/min/1. 73m2 [employer] BUN/CREATININE RATIO SEE NOTE: 6 - 22 (calc) [facility] Comment: Not Reported: BUN and Creatinine are within reference range. SODIUM 137 135 - 146 mmol/L [facility] POTASSIUM 5.0 3.5 - 5.3 mmol/L [facility] CHLORIDE 103 98 - 110 mmol/L [employer] CARBON DIOXIDE 28 20 - 32 mmol/L [facility] ELECTROLYTE BALANCE 6(L) 7 - 17 mmol/L (calc) [facility] CALCIUM 9.2 8.6 - 10.3 mg/dL [facility] Blood BLOOD SPECIMEN / Unknown 10/07/2024 10:49 AM FIELD APPRAISER 10/07/2024 10:49 AM FIELD APPRAISER Jay Brown DO CHEMISTRY Final Result [employer] [facility] [address] [place] [address], [facility] [address] [place] [address] * (ABNORMAL) HEMOGLOBIN A1C MONITORING (POCT) (10/07/2024 10:48 AM FIELD APPRAISER) POC HEMOGLOBIN A1C 8.6(H) <6.0 % OF TOTAL HGB [facility] Comment: Any point of care results exhibiting inconsistency with the patient's clinical status should be repeated using a different testing method. Blood BLOOD SPECIMEN / Unknown 10/07/2024 10:48 AM FIELD APPRAISER 10/07/2024 10:48 AM FIELD APPRAISER Jay Bellaleks CHEMISTRY Final Result [facility] [address] [place] [address], [facility] [address] [place] [address] * (ABNORMAL) LIPID PANEL W REFLEX MEASURED LDL (05/07/2024 10:55 AM CDT) CHOLESTEROL,TOTAL 146 100 - 199 mg/dL 05/08/2024 2:10 AM CDT [facility] Comment: Cholesterol, Total Reference Ranges Desirable <200 mg/dL Borderline 200-239 mg/dL High >=240 mg/dL TRIGLYCERIDES 189(H) <150 mg/dL 05/08/2024 2:10 AM CDT [facility] HDL CHOLESTEROL 41 >40 mg/dL 2:10 AM CDT [facility] NON-HDL CHOLESTEROL 105 <145 mg/dl 05/08/2024 2:10 AM CDT [facility] CHOL/HDL RATIO 3.56 <4.50 05/08/2024 2:10 AM CDT [facility] LDL CHOLESTEROL 67 <=130 mg/dL 05/08/2024 2:10 AM CDT [facility] VLDL CHOLESTEROL 38(H) <=30 mg/dL 05/08/2024 2:10 AM CDT [facility] PROVIDER ORDERED STATUS RANDOM 05/08/2024 2:10 AM CDT [facility] Blood BLOOD SPECIMEN / Unknown Venipuncture / Unknown 05/07/2024 10:55 AM CDT 05/07/2024 11:04 AM CDT us Jay Brown DO CHEMISTRY Final Result [facility] [address] [place] [address], * ANTI HCV (09/26/2021 10:56 AM FIELD APPRAISER) HEPATITIS C ANTIBODY Non-React will Non-React will 09/26/2021 6:22 PM FIELD APPRAISER [facility] Comment:Antibodies to HCV no t detected; does not exclude the possibility of exposure to HCV. Blood BLOOD SPECIMEN / Unknown Venipuncture / Unknown 09/26/2021 10:56 AM FIELD APPRAISER 09/26/2021 10:56 AM FIELD APPRAISER us Ramin Dubon MD SEND OUTS Final Result Performing Organization Address City/[facility]/ZIP Co de Phone Number [facility] [address] [place] [address], * COLONOSCOPY SCREENING (08/17/2020 10:42 AM FIELD APPRAISER) us Javier Henderson MD GI PROCEDURE ORD Final Res ult from Last 3 Months or Most Recently Relevant to Health Maintenance Insurance [employer] BL[employer] MR PB ONLY MEDICARE PART B HB ONLY [employer] BL[employer] HB ONLY Care Teams Vp Product Marketing Relationship Specialty Start Date End Date Jay [place] [address] [place] [address] PCP - General Family Practice 01/27/[address] [place] [address] Cnc Technician Conveyor Operator 07/04/21 Michelle Alvarez PA [address] [place] [address] Physician Truck Striker 10/20/24
[2024-11-08 18:07] LABS: Glucose, Point-of-Care* 187 mg/dl (60-115)
[2024-11-08 18:24] LABS: Chloride* 101 mmol/L (96-114); Potassium* 4.1 mmol/L (3.6-5.1); Sodium* 134 mmol/L (135-149)
[2024-11-08 18:26] LABS: Creatinine* 0.7 mg/dL (0.5-1.5); Est. Creatinine Clearance* 69.35; Estimated Glomerular Filt Rate 101 ml/min
[2024-11-08 18:27] LABS: Anion Gap 7 mEq/L (7-15); Blood Urea Nitrogen* 22 mg/dL (7-30); Calcium* 9.4 mg/dL (8.4-10.6); Carbon Dioxide* 26 mmol/L (20-32); Glucose* 180 mg/dL (60-115)
[2024-11-08 18:36] LABS: Glucose, Point-of-Care* 179 mg/dl (60-115)
[2024-11-08 19:10] LABS: Glucose, Point-of-Care* 152 mg/dl (60-115)
[2024-11-08 19:26] LABS: Glucose, Point-of-Care* 152 mg/dl (60-115)
[2024-11-08 19:31] VITALS: BP 162/104; PULSE 96; RESP 16; O2SAT 98
[2024-11-08 19:48] LABS: Glucose, Point-of-Care* 175 mg/dl (60-115)
== END 2024-11-08 20:12 | disposition home or self-care (01) ==
PROVIDERS: Emergency Provider Family Medicine; PCP Student in an Organized Health Care Education/Training Program
DX: T38.3X1A Poisoning by insulin and oral hypoglycemic [antidiabetic] drugs, accidental (unintentional), initial encounter (principal); Z79.4 Long term (current) use of insulin
CPT/HCPCS: 36415; 80048; 82947; 99284; 99291